=== PATIENT | female | born 1980 | race Caucasian/White ===

== ENCOUNTER 2017-07-05 23:14 | Emergency (ER) | payer MEDICARE ==
[2017-07-05] MEDS ORDERED: MORPHINE SULFATE 4 MG INJ IM ONE (23:20)
--- NOTE | 2017-07-05 23:24 | ERPHSYRPT ---
- History of Present Illness Time Seen by Provider: 07/05/17 23:21 Source: patient Exam Limitations: no limitations Physician History: 36 y/o female currently on coumadin comes to the ER after punching the top of the [place] of her car after getting into an argument with her daughter. Pt localizes the pain at the last 2 knuckles of the right hand and the wrist. Pt describes the pain as sharp, constant, worse with movement, 8/10 and not relieved by oxycodone. Occurred: just prior to arrival Method of Injury: direct blow Quality: constant Severity of Pain-Max: severe Severity of Pain-Current: severe Extremities Pain Location: wrist: right, hand: right Modifying Factors: Improves With: movement Associated Symptoms: none Allergies/Adverse Reactions: No Known Drug Allergies Allergy (Verified 07/05/17 23:49) Home Medications: PANTOPRAZOLE 40 mg Tablet [Protonix 40MG Tablet] 40 mg PO BID 05/25/13 [ History] Cetirizine HCl [Zyrtec] 10 mg PO DAILY PRN 08/15/13 [History] Linaclotide [Linzess] 145 mcg PO DAILY 11/23/13 [History] AMITRIPTYLINE HCL 50 mg Tab [AMITRIPTYLINE HCL 50 mg Tablet] 50 mg PO HS [History] Canagliflozin [Invokana] 250 mg PO DAILY 04/14/15 [History] Duloxetine HCl [Cymbalta] 60 mg PO DAILY 05/31/16 [History] Insulin Detemir [Levemir] 50 unit SQ DAILY 05/31/16 [History] Cyclobenzaprine HCl 10 mg [Flexeril 10 MG] 10 mg PO HS 08/29/16 [History] Levothyroxine Sodium 25 mcg PO DAILY 07/05/17 [History] Oxycodone HCl/Acetaminophen [Endocet 10-325 mg Tablet] 1 each PO QID 07/05/17 [ History] Warfarin Sodium 5 mg [Coumadin 5 MG] 7.5 mg PO UD 07/05/17 [History] Warfarin Sodium 5 mg [Coumadin 5 MG] 10 mg PO DAILY 07/05/17 [History] Hx Tetanus, Diphtheria Vaccination/Date Given: Yes ([place]) Hx Influenza Vaccination/Date Given: No Hx Pneumococcal Vaccination/Date Given: No - Review of Systems Constitutional: No Fever, No Chills Eyes: No Symptoms Ears, Nose, & Throat: No Symptoms Respiratory: No Cough, No Dyspnea Cardiac: No Chest Pain, No Edema, No Syncope Abdominal/Gastrointestinal: No Abdominal Pain, No Nausea, No Vomiting, No Diarrhea Genitourinary Symptoms: No Dysuria Musculoskeletal: Joint Pain, Joint Swelling, No Back Pain, No Neck Pain Skin: No Rash Neurological: No Dizziness, No Focal Weakness, No Sensory Changes Psychological: No Symptoms Endocrine: No Symptoms All Other Systems: Reviewed and Negative - Past Medical History Pertinent Past Medical History: Yes Neurological History: Peripheral Neuropathy ENT History: No Pertinent History Cardiac History: No Pertinent History Respiratory History: Bronchitis Endocrine Medical History: Diabetes Type II, Hypothyroidism Musculoskeletal History: Degenerative Disk Disease, Fibromyalgia GI Medical History: GERD History: No Pertinent History Psycho-Social History: Anxiety, Depression Female Reproductive Disorders: Abnormal Uterine Bleeding, Menstrual Problems, Other Other Medical History: Protein C-difficiency. Irritable Bowel Syndrome, ADD - Past Surgical History Past Surgical History: Yes Neuro Surgical History: No Pertinent History Cardiac: Cardiac Catheterization Respiratory: No Pertinent History Gastrointestinal: Cholecystectomy Genitourinary: No Pertinent History Musculoskeletal: Orthopedic Surgery Female Surgical History: Section, Hysterectomy, Tubal Ligation Other Surgical History: TONSILLECTOMY - LUMBAR BACK SURGERY - Social History Smoking Status: Current every day smoker How long have you smoked: 20 Exposure to second hand smoke: No Drug Use: none Patient Lives Alone: No - Female History Hx Now: No - Nursing Vital Signs Nursing Vital Signs: Initial Vital Signs Temperature 98.8 F 07/05/17 23:29 Pulse Rate 99 H 07/05/17 23:29 Respiratory Rate 18 07/05/17 23:29 Blood Pressure 160/92 07/05/17 23:29 O2 Sat by Pulse Oximetry 99 07/05/17 23:29 Pain Scale Pain Intensity 10 - Physical Exam General Appearance: alert Eyes, Ears, Nose, Throat Exam: moist mucous membranes Neck Exam: non-tender, supple Cardiovascular/Respiratory Exam: chest non-tender, normal breath sounds, regular rate/rhythm, no respiratory distress Abdominal Exam: non-tender, No guarding Back Exam: normal inspection, No vertebral tenderness Elbow/Forearm Exam: bone tenderness, limited ROM Wrist Exam: bone tenderness, limited ROM Hand Exam: bone tenderness, limited ROM Neuro/Tendon Exam: normal sensation, normal motor functions Mental Status Exam: alert, oriented x 3, cooperative Skin Exam: normal color, warm, dry SpO2 Interpretation: normal - Course Nursing assessment & vital signs reviewed: Yes Ordered Tests: Active Orders 24 hr Category Date Time Status Splint STAT Care 07/06/17 00:07 Active FOREARM Stat Exams 07/05/17 Ordered HAND (MINIMUM 3 VIEWS) Stat Exams 07/05/17 Ordered Medication Summary Discontinued Medications Generic Name Dose Route Start Last Admin Trade Name Andie PRN Reason Stop Dose Admin Morphine Sulfate 4 mg 07/05/17 23:20 07/05/17 23:35 Morphine Sulfate 4 Mg Inj IM 07/05/17 23:21 4 mg STAT ONE Administration Morphine Sulfate Confirm 07/05/17 23:30 Morphine Sulfate 4 Mg Inj Administered 07/05/17 23:31 Dose 4 mg .ROUTE .STK-MED ONE - Progress Progress: improved Progress Note: 07/06/17 00:10 The x ray of the hand shows a 5th metacarpal fracture. The forearm fracture does not show any fracture. Pt will be d/c home with F/U with Dr Lewis and will have a splint placed. - Departure Time of Disposition: 00:11 Departure Disposition: Home Clinical Impression: Metacarpal bone fracture Qualifiers: Encounter type: initial encounter Metacarpal bone: fifth Fracture type: closed Metacarpal location: base Fracture alignment: nondisplaced Laterality: right Qualified Code(s): S62.346A - Nondisplaced fracture of base of fifth metacarpal bone, right hand, initial encounter for closed fracture Condition: Stable Critical Care Time: No Referrals: JAMMIE CHRISTIAN [Primary Care Provider] - BLAS LEWIS [ACTIVE STAFF] - Instructions: Finger Fracture Additional Instructions: Follow up with Dr Lewis in the next few days. Prescriptions: Oxycodone HCl/Acetaminophen [Percocet 5-325 mg Tablet] 1 each PO QID PRN #20 tablet PRN Reason: Pain
[2017-07-05] MEDS ORDERED: MORPHINE SULFATE 4 MG INJ ONE (23:30)
[2017-07-06] MEDS ORDERED: PERCOCET TABLET 5/325MG PO STA (00:16)
[2017-07-06] MEDS ORDERED: PERCOCET TABLET 5/325MG ONE (00:27)
[2017-07-06 00:32] VITALS: BP 155/92; PULSE 93; O2SAT 96
--- NOTE | 2017-07-06 08:47 | XRAY ---
Indication: Pain following punching injury. Comparison: None 2 views of the right forearm obtained. No bony, articular, or soft tissue abnormalities.
--- NOTE | 2017-07-06 08:47 | XRAY ---
Indication: Pain following punching injury. Comparison: None 3 views of the right hand demonstrates moderately angulated fracture involving the distal shaft of the fifth metacarpal of uncertain chronicity. No other bony, articular, or soft tissue abnormalities.
== END 2017-07-06 00:32 | disposition home or self-care (01) ==
LOC: ED 23:14
PROC: 2W3EX1Z Immobilization of Right Hand using Splint (ICD-10-PCS; principal; 2017-07-06)
DX: S62.346A Nondisplaced fracture of base of fifth metacarpal bone, right hand, initial encounter for closed fracture (principal); W22.8XXA Striking against or struck by other objects, initial encounter; Z79.891 Long term (current) use of opiate analgesic; Z79.01 Long term (current) use of anticoagulants; Z79.899 Other long term (current) drug therapy; E11.9 Type 2 diabetes mellitus without complications; E03.9 Hypothyroidism, unspecified; F41.9 Anxiety disorder, unspecified
CPT/HCPCS: 29126; 73090; 73130; 96372; 99284; J2270; A9270-GY

== ENCOUNTER 2017-07-19 13:43 | Emergency (ER) | payer MEDICARE ==
[2017-07-19] MEDS ORDERED: MORPHINE SULFATE 2 MG INJ IV ONE ×2 (13:57→15:13)
[2017-07-19] MEDS ORDERED: Zofran 4 MG/2 ML VIAL IV ONE (13:57)
[2017-07-19] MEDS ORDERED: Lactated Ringers 1,000 ML IV ONE ×2 (13:59→14:16)
--- NOTE | 2017-07-19 14:05 | ERPHSYRPT ---
- History of Present Illness Time Seen by Provider: 07/19/17 13:48 Historian: patient Exam Limitations: no limitations Patient Subjective Stated Complaint: PT REPORTS DIARRHEA YESTERDAY ET VOMITING BEGINNING COLE 0900 TODAY-MULTIPLE EPISODES-REPORTS PAIN TO ABD-STATES THAT FAMILY HAS HAD ILLNESS PREVIOUS TO PT Triage Nursing Assessment: PT PALE WARM ET [id number] ALL QUESTIONS CORRECTLY-ABD TENDER TO PALP Physician History: patient with N, V &D since last pm; no travel; no bad food; no fever; exposed to family members over past week with same symptoms; city water; no prior hx; not by hx Timing/Duration: today (followed with N&V unable to keep awater down), yesterday (onset diarrhea), sudden, worse Activities at Onset: rest Quality: cramping Abdominal Pain Onset Location: generalized abdomen Pain Radiation: no radiation Severity of Pain-Max: moderate Severity of Pain-Current: mild Modifying Factors: Improves With: defecating, eating, vomiting Associated Symptoms: diarrhea, nausea, vomiting Previous symptoms: no prior history Allergies/Adverse Reactions: No Known Drug Allergies Allergy (Verified 07/19/17 13:53) Home Medications: PANTOPRAZOLE 40 mg Tablet [Protonix 40MG Tablet] 40 mg PO BID 05/25/13 [ History] Cetirizine HCl [Zyrtec] 10 mg PO DAILY PRN 08/15/13 [History] Linaclotide [Linzess] 145 mcg PO DAILY 11/23/13 [History] AMITRIPTYLINE HCL 50 mg Tab [AMITRIPTYLINE HCL 50 mg Tablet] 50 mg PO HS [History] Canagliflozin [Invokana] 250 mg PO DAILY 04/14/15 [History] Duloxetine HCl [Cymbalta] 60 mg PO DAILY 05/31/16 [History] Insulin Detemir [Levemir] 50 unit SQ DAILY 05/31/16 [History] Cyclobenzaprine HCl 10 mg [Flexeril 10 MG] 10 mg PO HS 08/29/16 [History] Levothyroxine Sodium 25 mcg PO DAILY 07/05/17 [History] Oxycodone HCl/Acetaminophen [Endocet 10-325 mg Tablet] 1 each PO QID 07/05/17 [ History] Warfarin Sodium 5 mg [Coumadin 5 MG] 7.5 mg PO UD 07/05/17 [History] Warfarin Sodium 5 mg [Coumadin 5 MG] 10 mg PO DAILY 07/05/17 [History] Hx Tetanus, Diphtheria Vaccination/Date Given: No Hx Influenza Vaccination/Date Given: No Hx Pneumococcal Vaccination/Date Given: No Immunizations Up to Date: Yes - Review of Systems Constitutional: No Symptoms Eyes: No Symptoms Ears, Nose, & Throat: No Symptoms Respiratory: No Cough, No Dyspnea, No Wheezing Cardiac: No Chest Pain, No Syncope, No Orthopnea Abdominal/Gastrointestinal: Abdominal Pain, Nausea, Vomiting, Diarrhea, No Constipation, No Hematemesis, No Hematochezia, No Melena Genitourinary Symptoms: No Symptoms Musculoskeletal: Myalgias, No Back Pain, No Fall, No Injury Skin: No Symptoms Neurological: No Symptoms Psychological: No Symptoms Endocrine: No Symptoms Hematologic/Lymphatic: No Symptoms Immunological/Allergic: No Symptoms - Past Medical History Pertinent Past Medical History: Yes Neurological History: Peripheral Neuropathy ENT History: No Pertinent History Cardiac History: No Pertinent History Respiratory History: Bronchitis Endocrine Medical History: Diabetes Type II, Hypothyroidism Musculoskeletal History: Degenerative Disk Disease, Fibromyalgia GI Medical History: GERD History: No Pertinent History Psycho-Social History: Anxiety, Depression Female Reproductive Disorders: Abnormal Uterine Bleeding, Menstrual Problems, Other Other Medical History: Protein C-difficiency. Irritable Bowel Syndrome, ADD - Past Surgical History Past Surgical History: Yes Neuro Surgical History: No Pertinent History Cardiac: Cardiac Catheterization Respiratory: No Pertinent History Gastrointestinal: Cholecystectomy Genitourinary: No Pertinent History Musculoskeletal: Orthopedic Surgery Female Surgical History: Section, Hysterectomy, Tubal Ligation Other Surgical History: TONSILLECTOMY - LUMBAR BACK SURGERY - Social History Smoking Status: Current every day smoker How long have you smoked: 20 Exposure to second hand smoke: No Alcohol Use: Socially Drug Use: none Patient Lives Alone: No Significant Family History: diabetes - Female History Hx Last Menstrual Period: HYSTERECTOMY Hx Now: No - Nursing Vital Signs Nursing Vital Signs: Initial Vital Signs Temperature 98.5 F 07/19/17 13:52 Pulse Rate 94 H 07/19/17 13:52 Respiratory Rate 20 07/19/17 13:52 Blood Pressure 128/76 07/19/17 13:52 O2 Sat by Pulse Oximetry 96 07/19/17 13:52 Pain Scale Pain Intensity 4 - Physical Exam General Appearance: moderate distress, alert, obese Eye Exam: PERRL/EOMI, eyes nml inspection, No photophobia Ears, Nose, Throat Exam: normal ENT inspection, TMs normal, pharynx normal, dry mucous membranes, other (no ketosis on breath) Neck Exam: normal inspection, non-tender, supple, full range of motion, No meningismus, No JVD Respiratory Exam: normal breath sounds, lungs clear, airway intact, No chest tenderness, No respiratory distress Cardiovascular Exam: regular rate/rhythm, normal heart sounds, normal peripheral pulses, capillary refill 2-3 sec, No murmur Gastrointestinal/Abdomen Exam: soft, tenderness (mild - non-specific; no localization), No normal bowel sounds (hypoactive), No guarding, No rebound, No organomegaly Pelvic Exam: deferred Rectal Exam: deferred Back Exam: normal inspection, normal range of motion, No CVA tenderness, No vertebral tenderness, No rash Extremity Exam: normal inspection, normal range of motion, No teresa's sign, No pedal edema Neurologic Exam: alert, oriented x 3, cooperative, assistant real estate manager II-XII nml as tested, normal mood/affect, nml cerebellar function, nml station & gait, sensation nml Skin Exam: normal color, warm, dry, No rash SpO2 Interpretation: normal SpO2: 96 Oxygen Delivery: Room Air - Course Nursing assessment & vital signs reviewed: Yes Ordered Tests: Active Orders 24 hr Category Date Time Status Accucheck STAT Care 07/19/17 14:05 Active IV Insertion STAT Care 07/19/17 13:57 Active NPO (ED) STAT Care 07/19/17 13:57 Active Re-Check Vital Signs STAT Care 07/19/17 13:57 Active AMYLASE Stat Lab 07/19/17 14:10 Completed CBC W DIFF Stat Lab 07/19/17 14:10 Completed CMP Stat Lab 07/19/17 14:10 Completed HCG QUALITATIVE,SERUM Stat Lab 07/19/17 14:10 Completed LIPASE Stat Lab 07/19/17 14:10 Completed Medication Summary Discontinued Medications Generic Name Dose Route Start Last Admin Trade Name Freq PRN Reason Stop Dose Admin Lactated Ringer's 1,000 mls @ 999 mls/hr 07/19/17 13:59 07/19/17 14:20 Lactated Ringers IV 07/19/17 14:59 999 mls/hr .Q1H1M ONE Administration Lactated Ringer's Confirm 07/19/17 14:16 Lactated Ringers Administered 07/19/17 14:17 Dose 1,000 mls @ ud IV .STK-MED ONE Sodium Chloride 1,000 mls @ 999 mls/hr 07/19/17 15:13 07/19/17 15:23 Sodium Chloride 0.9% 1000 Ml IV 07/19/17 16:13 999 mls/hr .Q1H1M STA Administration Sodium Chloride Confirm 07/19/17 15:20 Sodium Chloride 0.9% 1000 Ml Administered 07/19/17 15:21 Dose 1,000 mls @ ud .ROUTE .STK-MED ONE Morphine Sulfate 1 mg 07/19/17 13:57 07/19/17 14:20 Morphine Sulfate 2 Mg Inj IV 07/19/17 13:58 1 mg STAT ONE Administration Morphine Sulfate Confirm 07/19/17 14:15 Morphine Sulfate 2 Mg Inj Administered 07/19/17 14:16 Dose 2 mg .ROUTE .STK-MED ONE Morphine Sulfate 1 mg 07/19/17 15:13 07/19/17 15:22 Morphine Sulfate 2 Mg Inj IV 07/19/17 15:14 1 mg STAT ONE Administration Morphine Sulfate Confirm 07/19/17 15:20 Morphine Sulfate 2 Mg Inj Administered 07/19/17 15:21 Dose 2 mg .ROUTE .STK-MED ONE Ondansetron HCl 4 mg 07/19/17 13:57 07/19/17 14:21 Zofran 4 Mg/2 Ml Vial IV 07/19/17 13:58 4 mg STAT ONE Administration Ondansetron HCl Confirm 07/19/17 14:15 Zofran 4 Mg/2 Ml Vial Administered 07/19/17 14:16 Dose 4 mg .ROUTE .STK-MED ONE Promethazine HCl 12.5 mg 07/19/17 15:13 07/19/17 15:22 Phenergan 25 Mg Inj IV 07/19/17 15:14 12.5 mg STAT ONE Administration Promethazine HCl Confirm 07/19/17 15:19 Phenergan 25 Mg Inj Administered 07/19/17 15:20 Dose 25 mg .ROUTE .STK-MED ONE Lab/Rad Data: Laboratory Result Diagrams 07/19/17 14:10 07/19/17 14:10 Laboratory Results 07/19/17 07/19/17 07/19/17 Range/Units 14:10 14:10 14:10 WBC 10.3 (4.0-10.5) K/mm3 RBC 4.69 (4.1-5.4) M/mm3 Hgb 13.7 (12.0-16.0) gm/dl Hct 41.3 (35-47) % MCV 88.1 (78-100) fl MCH 29.2 (26-32) pg MCHC 33.2 (32-36) g/dl RDW 13.8 (11.5-14.0) % Plt Count 255 (150-450) K/mm3 MPV 10.1 H (6-9.5) fl Gran % 67.7 H (36.0-66.0) % Lymphocytes % 23.7 L (24.0-44.0) % Monocytes % 6.8 (0.0-12.0) % Eosinophils % 1.7 (0.00-5.0) % Basophils % 0.1 (0.0-0.4) % Basophils # 0.01 (0-0.4) Sodium 144 (136-145) mEq/L Potassium 4.0 (3.5-5.1) mEq/L Chloride 107 (98-107) mEq/L Carbon Dioxide 27.9 (21-32) mEq/L Anion Gap 12.9 (5-15) MEQ/L BUN 15 (9-20) mg/dL Creatinine 0.65 (0.55-1.30) mg/dl Estimated GFR > 60 ML/MIN Glucose 139 H (70-110) MG/DL Calcium 8.8 (8.5-10.1) mg/dL Total Bilirubin 0.60 (0.2-1.0) mg/dL AST 448 H (15-37) U/L ALT 144 H (12-78) U/L Alkaline Phosphatase 305 H (46-116) U/L Serum Total Protein 6.5 (6.4-8.2) gm/dL Albumin 3.1 L (3.4-5.0) g/dL Amylase 11 L (25-115) U/L Lipase 98 (73-393) U/L Serum , Qual NEGATIVE (Negative) reviewed - Progress Progress: improved (after meds), re-examined (after iv fluids and meds) Progress Note: 07/19/17 14:05 will hydrate with IV fluids and recheck; labs pending, meds will be given 07/19/17 15:08 Accucheck 147; hcg neg; still some nausea and cramps but no emesis or diarrhea; cbc ok; will continue IV hydration and recheck 07/19/17 15:44 recheck and improved after more meds and IV fluids; BS 138; renal fx ok; lytes ok; liver enz up ; lip and trell ok; at bedside; will continue IV hydration and recheck; treatment plan discussed 07/19/17 16:41 recheck and much improved; feels good; wants to go home; treatment plan and instructions given; Counseled pt/family regarding: lab results, diagnosis, need for follow-up, smoking cessation - Departure Time of Disposition: 16:42 Departure Disposition: Home Clinical Impression: Abdominal pain, Acute gastroenteritis, Elevated liver enzymes Condition: Stable Critical Care Time: No Referrals: JAMMIE CHRISTIAN [Primary Care Provider] - Instructions: Diarrhea and Traveler's Diarrhea -- Adult, Nausea -- Adult, Vomiting -- Adult Additional Instructions: BRAT diet; yogurt; gatorade Follow-up with family doctor as directed. Call for appointment. Return if any problems. If you smoke please stop. Call or follow up with your family doctor for assistance if you need it to stop. Please wear your seatbelt when driving. Have a nice day. Thank you for allowing us to participate in your care today. :o) Dr Kirill Gonzalez Prescriptions: Loperamide HCl [Imodium A-D] 2 mg PO Q8H PRN PRN #10 tablet PRN Reason: Diarrhea Ondansetron [Zofran Odt] 4 mg PO Q6-8HPRN PRN #10 tab.rapdis PRN Reason: Vomiting
[2017-07-19] MEDS ORDERED: MORPHINE SULFATE 2 MG INJ ONE ×2 (14:15→15:20)
[2017-07-19] MEDS ORDERED: Zofran 4 MG/2 ML VIAL ONE (14:15)
[2017-07-19 14:19] LABS: BASOPHIL % 0.1 % (0.0-0.4); Eosinophil % 1.7 % (0.00-5.0); Granulocytes % 67.7 % (36.0-66.0); Lymphocytes % 23.7 % (24.0-44.0); Mean Cell Volume 88.1 fl (78-100); Mean Corpuscular Hemoglobin 29.2 pg (26-32); Mean Platelet Volume 10.1 fl (6-9.5); Monocytes % 6.8 % (0.0-12.0); Platelet Count 255 K/mm3 (150-450); Red Blood Count 4.69 M/mm3 (4.1-5.4); Red Cell Distribution Width 13.8 % (11.5-14.0); White Blood Count 10.3 K/mm3 (4.0-10.5)
[2017-07-19 15:01] LABS: ALBUMIN 3.1 g/dL (3.4-5.0); ALKALINE PHOSPHATASE 305 U/L (46-116); ANION GAP 12.9 MEQ/L (5-15); BLOOD UREA NITROGEN 15 mg/dL (9-20); CHLORIDE 107 mEq/L (98-107); Carbon Dioxide 27.9 mEq/L (21-32); Glucose 139 MG/DL (70-110); LIPASE 98 U/L (73-393); SGOT/AST 448 U/L (15-37); SGPT/ALT 144 U/L (12-78); SODIUM 144 mEq/L (136-145); Total Protein 6.5 gm/dL (6.4-8.2)
[2017-07-19] MEDS ORDERED: Sodium Chloride 0.9% 1000 ML 1,000 ML IV STA (15:13)
[2017-07-19] MEDS ORDERED: Phenergan 25 MG INJ IV ONE (15:13)
[2017-07-19] MEDS ORDERED: Phenergan 25 MG INJ ONE (15:19)
[2017-07-19] MEDS ORDERED: Sodium Chloride 0.9% 1000 ML 1,000 ML ONE (15:20)
[2017-07-19 16:54] VITALS: BP 118/56; PULSE 92; O2SAT 95
== END 2017-07-19 16:54 | disposition home or self-care (01) ==
LOC: ED 13:43
DX: R10.9 Unspecified abdominal pain (principal); K52.9 Noninfective gastroenteritis and colitis, unspecified; R74.8 Abnormal levels of other serum enzymes; R11.2 Nausea with vomiting, unspecified; R19.7 Diarrhea, unspecified; Z79.899 Other long term (current) drug therapy; Z79.01 Long term (current) use of anticoagulants
CPT/HCPCS: 36000; 36415; 80053; 82150; 82962; 83690; 84703; 85025; 96360; 96361; 96374; 96376; 99284; J2270; J2405; J2550

== ENCOUNTER 2018-09-04 03:09 | Emergency (ER) | payer MEDICARE ==
[2018-09-04 03:27] VITALS: BP 151/72; O2SAT 97
[2018-09-04] MEDS ORDERED: MORPHINE SULFATE 4 MG INJ IM ONE (03:29)
[2018-09-04] MEDS ORDERED: MORPHINE SULFATE 4 MG INJ ONE (03:34)
--- NOTE | 2018-09-04 03:36 | ERPHSYRPT ---
- History of Present Illness Time Seen by Provider: 09/04/18 03:31 Source: patient Exam Limitations: no limitations Patient Subjective Stated Complaint: TWISTED LEFT ANKLE IN A HOLE TODAY AT 1800. PAIN IN LATERAL ASPECT OF THE FOOT /ANKLE AND INTO THE ACHILLES. WAS ABLE TO WALK AFTER INJURY BUT INCREASING PAIN THE NIGHT HAS GONE ON Triage Nursing Assessment: FELL AND TWISTED LEFT ANKLE WITH PAIN TO LATERAL ASPECT OF LEFT FOOT. PAIN INTO LEFT ACHILLES.. + PEDAL PULSE PALPABLE + SWELLING.. PAIN ON PALPATION. WAS ABLE TO WALK AT TIME OF INJURY BUT STATES UNABLE TO WALK AT THIS TIME Physician History: 37-year-old white female arrives with complaint of pain in left ankle symptoms since 1800 last night. According to patient she stepped in a hole and twisted her ankle she states she has severe pain in her left ankle laterally medially and posteriorly. She has pain with any movement of the left ankle and states she has pain with walking. Patient does have a history of chronic pain she is on oxycodone she states this is not relieved her pain Past medical history includes peripheral neuropathy, bronchitis, diabetes type 2 , hypothyroidism, degenerative disc disease, fibromyalgia, anxiety, depression, abnormal uterine bleeding, menstrual problems, protein C deficiency, irritable bowel, ADD, Past surgical history includes cholecystectomy, cardiac catheterization, orthopedic surgery, , hysterectomy, tubal ligation, tonsillectomy, back surgery (lumbar) Social history includes tobacco use. Patient denies illicit drug or alcohol use. Method of Injury: twisted Occurred: hours ago (9 hours ago) Quality: constant Severity of Pain-Max: moderate Severity of Pain-Current: moderate Lower Extremities Pain: ankle: left Modifying Factors: Improves With: movement, other (walking) Associated Symptoms: unable to bear weight Allergies/Adverse Reactions: No Known Drug Allergies Allergy (Verified 09/04/18 03:29) Home Medications: PANTOPRAZOLE 40 mg Tablet [Protonix 40MG Tablet] 40 mg PO BID 05/25/13 [ History] Cetirizine HCl [Zyrtec] 10 mg PO DAILY PRN 08/15/13 [History] Linaclotide [Linzess] 145 mcg PO DAILY 11/23/13 [History] AMITRIPTYLINE HCL 50 mg Tab [AMITRIPTYLINE HCL 50 mg Tablet] 50 mg PO HS [History] Canagliflozin [Invokana] 250 mg PO DAILY 04/14/15 [History] Duloxetine HCl [Cymbalta] 60 mg PO DAILY 05/31/16 [History] Insulin Detemir [Levemir] 50 unit SQ DAILY 05/31/16 [History] Cyclobenzaprine HCl 10 mg [Flexeril 10 MG] 10 mg PO HS 08/29/16 [History] Levothyroxine Sodium 25 mcg PO DAILY 07/05/17 [History] Warfarin Sodium 5 mg [Coumadin 5 MG] 7.5 mg PO DAILY 07/05/17 [History] Warfarin Sodium 5 mg [Coumadin 5 MG] 10 mg PO UD 07/05/17 [History] Dextroamphetamine/Amphetamine [Adderall 20 mg Tablet] 20 mg PO DAILY 11/23/17 [ History] Gabapentin 600 mg PO HS 01/30/18 [History] Oxycodone HCl [Oxaydo] 7.5 mg PO Q6H PRN PRN 01/30/18 [History] Varenicline Tartrate [Chantix] 1 each PO BID 01/30/18 [History] Hx Tetanus, Diphtheria Vaccination/Date Given: No Hx Influenza Vaccination/Date Given: No Hx Pneumococcal Vaccination/Date Given: No Immunizations Up to Date: (UNKNOWN) - Review of Systems Constitutional: No Fever, No Chills Eyes: No Symptoms Ears, Nose, & Throat: No Symptoms Respiratory: No Cough, No Dyspnea Cardiac: No Chest Pain, No Edema, No Syncope Abdominal/Gastrointestinal: No Abdominal Pain, No Nausea, No Vomiting, No Diarrhea Genitourinary Symptoms: No Dysuria Musculoskeletal: Injury, Joint Pain (left ankle pain), Joint Swelling (left ankle swelling), No Arthralgias, No Back Pain, No Neck Pain, No Deformity, No Fall, No Joint Redness Skin: No Rash Neurological: No Dizziness, No Focal Weakness, No Sensory Changes Psychological: No Symptoms Endocrine: No Symptoms All Other Systems: Reviewed and Negative - Past Medical History Pertinent Past Medical History: Yes Neurological History: Peripheral Neuropathy ENT History: No Pertinent History Cardiac History: No Pertinent History Respiratory History: Bronchitis Endocrine Medical History: Diabetes Type II, Hypothyroidism Musculoskeletal History: Degenerative Disk Disease, Fibromyalgia GI Medical History: GERD History: No Pertinent History Psycho-Social History: Anxiety, Depression Female Reproductive Disorders: Abnormal Uterine Bleeding, Menstrual Problems, Other Other Medical History: Protein C-difficiency. Irritable Bowel Syndrome, ADD - Past Surgical History Past Surgical History: Yes Neuro Surgical History: No Pertinent History Cardiac: Cardiac Catheterization Respiratory: No Pertinent History Gastrointestinal: Cholecystectomy Genitourinary: No Pertinent History Musculoskeletal: Orthopedic Surgery Female Surgical History: Section, Hysterectomy, Tubal Ligation Other Surgical History: TONSILLECTOMY - LUMBAR BACK SURGERY - Social History Smoking Status: Current every day smoker How long have you smoked: 20 Exposure to second hand smoke: No Alcohol Use: Socially Drug Use: none Patient Lives Alone: No Significant Family History: diabetes - Female History Hx Now: No - Nursing Vital Signs Nursing Vital Signs: Initial Vital Signs Temperature 98.4 F 09/04/18 03:15 Respiratory Rate 18 09/04/18 03:15 Blood Pressure 151/72 09/04/18 03:15 O2 Sat by Pulse Oximetry 97 09/04/18 03:15 Pain Scale Pain Intensity 7 - Physical Exam General Appearance: mild distress Eyes, Ears, Nose, Throat Exam: moist mucous membranes Neck Exam: non-tender, supple Cardiovascular/Respiratory Exam: chest non-tender, normal breath sounds, regular rate/rhythm, no respiratory distress Gastrointestinal/Abdominal Exam: non-tender, guarding Back Exam: normal inspection, No vertebral tenderness Hips Exam: bilateral: non-tender, normal inspection, normal range of motion, no evidence of injury Legs Exam: bilateral leg: non-tender, normal inspection, normal range of motion , no evidence of injury Knees Exam: bilateral knee: non-tender, normal inspection, normal range of motion, no evidence of injury Ankle Exam: right ankle: non-tender, normal inspection, normal range of motion, no evidence of injury, left ankle: other (patient's left ankle tender with palpation, medially, laterally, posteriorly, left dorsal pedal, posterior tibial pulses intact 2 over 4, good capillary refill all toes patient with plantar flexion with squeezing left calf.) Foot Exam: bilateral foot: non-tender, normal inspection, normal range of motion , no evidence of injury Neuro/Tendon Exam: normal sensation, normal motor functions, normal tendon functions, responds to pain, no evidence tendon injury, No motor deficit, No sensory deficit Mental Status Exam: alert, oriented x 3, cooperative Skin Exam: normal color, warm, dry SpO2 Interpretation: normal (97%) SpO2: 97 Oxygen Delivery: Room Air - Course Nursing assessment & vital signs reviewed: Yes - Radiology Exams Left Ankle X-ray Interpretation: Interpreted by me, Negative, No Fracture, No Subluxation Ordered Tests: Active Orders 24 hr Category Date Time Status Sly Bandage Application -[facility] STAT Care 09/04/18 03:52 Active Crutches STAT Care 09/04/18 03:52 Active ANKLE (3 VIEWS) Stat Exams 09/04/18 03:29 Taken Medication Summary Discontinued Medications Generic Name Dose Route Start Last Admin Trade Name Andie PRN Reason Stop Dose Admin Morphine Sulfate 4 mg 09/04/18 03:29 09/04/18 03:35 Morphine Sulfate 4 Mg Inj IM 09/04/18 03:30 4 mg STAT ONE Administration Morphine Sulfate Confirm 09/04/18 03:34 Morphine Sulfate 4 Mg Inj Administered 09/04/18 03:35 Dose 4 mg .ROUTE .STK-MED ONE - Progress Progress: improved Progress Note: 09/04/18 03:37 37-year-old white female with history of chronic pain syndrome arrives with complaint of pain in her left ankle after twisting it approximately 9 hours ago. She has pain with palpation of medial lateral posterior left ankle decreased range of motion left ankle left toe secondary to pain good capillary refill to all toes sensation intact to all toes left dorsal pedal posterior tibial pulses are intact. Patient does state that she took an oxycodone which is not relieving her pain she does have chronic pain syndrome. inspect is reviewed and the patient is on Oxycodone HCL 10 mg she recieved 120 of these on 08/09/2018. Will go ahead and give patient morphine 4 mg IM go ahead and x-ray the patient' s left ankle. 09/04/18 03:44 09/04/18 03:52 X-ray left ankle my read: No fracture no subluxation. We'll go ahead and have the nurses apply Sly wrap to the patient's left ankle place patient on crutches weightbearing as tolerated. Patient has been given morphine 4 mg IM. Patient to continue her oxycodone as prescribed by her pain project control manager. Patient has been advised to follow-up with her family doctor or pain project control manager if symptoms are worse no better in 24-48 hours or persist longer than one week. She is return for acute distress or for severe symptoms. - Departure Time of Disposition: 03:54 Departure Disposition: Home Clinical Impression: History of chronic pain Left ankle pain Qualifiers: Chronicity: acute Qualified Code(s): M25.572 - Pain in left ankle and joints of left foot Left ankle sprain Qualifiers: Encounter type: initial encounter Involved ligament of ankle: unspecified ligament Qualified Code(s): S93.402A - Sprain of unspecified ligament of left ankle, initial encounter Condition: Fair Critical Care Time: No Referrals: JAMMIE CHRISTIAN [Primary Care Provider] - Instructions: Ankle Sprain (DC) Additional Instructions: Return home. Ice and elevate your left ankle 24-48 hours. Crutches weightbearing as tolerated. Follow-up with your family doctor if symptoms are worse, no better in 48 hours, or persist longer than one week. Follow-up with your family doctor or pain project control manager if your current narcotics are not controlling your pain. Return for acute distress or for severe symptoms. Your x-rays have been preliminarily read, they will be reread tomorrow, contacted if any discrepancies are noted.
--- NOTE | 2018-09-04 09:11 | XRAY ---
Indication: Pain following twisting injury. Comparison: None 3 views of the left ankle obtained. No bony, articular, or soft tissue abnormalities.
== END 2018-09-04 04:00 | disposition home or self-care (01) ==
LOC: ED 03:09
DX: G89.4 Chronic pain syndrome (principal); S93.402A Sprain of unspecified ligament of left ankle, initial encounter; M25.572 Pain in left ankle and joints of left foot; M25.472 Effusion, left ankle; G62.9 Polyneuropathy, unspecified; E11.9 Type 2 diabetes mellitus without complications; E03.9 Hypothyroidism, unspecified; M79.7 Fibromyalgia; K21.9 Gastro-esophageal reflux disease without esophagitis; F41.9 Anxiety disorder, unspecified; F32.9 Major depressive disorder, single episode, unspecified; K58.9 Irritable bowel syndrome, unspecified; Z72.0 Tobacco use; Z79.01 Long term (current) use of anticoagulants; Z79.899 Other long term (current) drug therapy
CPT/HCPCS: 73610; 96372; 99284; J2270

== ENCOUNTER 2018-12-17 20:46 | Emergency (ER) | payer MEDICARE ==
[2018-12-17] MEDS ORDERED: Sodium Chloride 0.9% 1000 ML 1,000 ML IV STA (21:37)
[2018-12-17] MEDS ORDERED: MORPHINE SULFATE 4 MG INJ IV ONE ×2 (21:40→22:41)
--- NOTE | 2018-12-17 21:45 | ERPHSYRPT ---
- History of Present Illness Time Seen by Provider: 12/17/18 21:33 Source: patient Exam Limitations: no limitations Patient Subjective Stated Complaint: pt states she woke up yesterday with a headache, body acehes and congestion. states she has had a fever up to 100 at home Triage Nursing Assessment: pt alert and oriented, answers questions approp. respirations nonlabored with lungs cta. pt ambulatory with steady gait noted. pupils equal and reactive. bilat upper and lower ext strength wnl. abd soft and nontender to light palpation. bowel sounds present Physician History: 38-year-old white female with history of peripheral neuropathy, diabetes, hypothyroidism, degenerative disc disease, fibromyalgia, anxiety, depression, abnormal uterine bleeding, menstrual periods, chronic pain Patient arrives with complaint of nasal congestion generalized aches temperature to 100 symptoms since yesterday also headache. Past medical history includes peripheral neuropathy, bronchitis, diabetes type 2 , hypothyroidism, degenerative disc disease, fibromyalgia, anxiety, depression, abnormal uterine bleeding, menstrual periods, protein C deficiency, irritable bowel, attention deficit disorder, patient on chronic pain medications Past surgical history includes cholecystectomy, cardiac catheterization, orthopedic surgery, , hysterectomy, tubal ligation, tonsillectomy, lumbar back surgery Timing/Duration: yesterday Severity: moderate Modifying Factors: Improves With: nothing Associated Symptoms: headaches, malaise, other (generalized aching), No nausea, No vomiting, No shortness of breath, No heartburn, No diaphoresis, No cough, No chills, No chest pain, No fever, No loss of appetite, No rash, No syncope, No seizure, No weakness Allergies/Adverse Reactions: No Known Drug Allergies Allergy (Verified 12/17/18 21:07) Home Medications: PANTOPRAZOLE 40 mg Tablet [Protonix 40MG Tablet] 40 mg PO BID 05/25/13 [ History] Cetirizine HCl [Zyrtec] 10 mg PO DAILY PRN 08/15/13 [History] Linaclotide [Linzess] 145 mcg PO DAILY 11/23/13 [History] AMITRIPTYLINE HCL 50 mg Tab [AMITRIPTYLINE HCL 50 mg Tablet] 50 mg PO HS [History] Canagliflozin [Invokana] 250 mg PO DAILY 04/14/15 [History] Duloxetine HCl [Cymbalta] 60 mg PO DAILY 05/31/16 [History] Insulin Detemir [Levemir] 50 unit SQ DAILY 05/31/16 [History] Cyclobenzaprine HCl 10 mg [Flexeril 10 MG] 10 mg PO HS 08/29/16 [History] Levothyroxine Sodium 25 mcg PO DAILY 07/05/17 [History] Warfarin Sodium 5 mg [Coumadin 5 MG] 7.5 mg PO DAILY 07/05/17 [History] Warfarin Sodium 5 mg [Coumadin 5 MG] 10 mg PO UD 07/05/17 [History] Dextroamphetamine/Amphetamine [Adderall 20 mg Tablet] 20 mg PO DAILY 11/23/17 [ History] Gabapentin 600 mg PO HS 01/30/18 [History] Oxycodone HCl [Oxaydo] 7.5 mg PO Q6H PRN PRN 01/30/18 [History] Varenicline Tartrate [Chantix] 1 each PO BID 01/30/18 [History] Hx Tetanus, Diphtheria Vaccination/Date Given: Yes Hx Influenza Vaccination/Date Given: No Hx Pneumococcal Vaccination/Date Given: No Immunizations Up to Date: Yes - Review of Systems Constitutional: Fever (temp to 100 Fahrenheit), Malaise, No Chills, No Fatigue, No Lethargy, No Night Sweats, No Weakness, No Weight Loss Eyes: No Symptoms Ears, Nose, & Throat: Nose Congestion, Nose Discharge, No Ear Pain, No Ear Discharge, No Hearing Changes, No Nose Pain, No Sinus Drainage, No Epistaxis, No Mouth Pain, No Mouth Swelling, No Loose Teeth, No Throat Pain, No Throat Swelling, No Hoarse, No Painful Swallowing, No Snoring, No Stridor Respiratory: No Cough, No Dyspnea Cardiac: No Chest Pain, No Edema, No Syncope Abdominal/Gastrointestinal: Nausea, No Abdominal Pain, No Vomiting, No Diarrhea Genitourinary Symptoms: No Dysuria Musculoskeletal: Myalgias, No Arthralgias, No Back Pain, No Neck Pain, No Deformity, No Fall, No Injury, No Joint Redness, No Joint Pain, No Joint Swelling Skin: No Rash Neurological: No Dizziness, No Focal Weakness, No Sensory Changes Psychological: No Symptoms Endocrine: No Symptoms All Other Systems: Reviewed and Negative - Past Medical History Pertinent Past Medical History: Yes Neurological History: Peripheral Neuropathy ENT History: No Pertinent History Cardiac History: No Pertinent History Respiratory History: Bronchitis Endocrine Medical History: Diabetes Type I, Hypothyroidism Musculoskeletal History: Degenerative Disk Disease, Fibromyalgia GI Medical History: GERD History: No Pertinent History Psycho-Social History: Anxiety, Depression Female Reproductive Disorders: Abnormal Uterine Bleeding, Menstrual Problems, Other Other Medical History: Protein C-difficiency. Irritable Bowel Syndrome, ADD - Past Surgical History Past Surgical History: Yes Neuro Surgical History: No Pertinent History Cardiac: Cardiac Catheterization Respiratory: No Pertinent History Gastrointestinal: Cholecystectomy Genitourinary: No Pertinent History Musculoskeletal: Orthopedic Surgery Female Surgical History: Section, Hysterectomy, Tubal Ligation Other Surgical History: TONSILLECTOMY - LUMBAR BACK SURGERY - Social History Smoking Status: Current every day smoker How long have you smoked: 20 Exposure to second hand smoke: No Alcohol Use: Socially Drug Use: none Patient Lives Alone: No Significant Family History: diabetes - Female History Hx Last Menstrual Period: hyster Hx Now: No - Nursing Vital Signs Nursing Vital Signs: Initial Vital Signs Temperature 98.3 F 12/17/18 20:56 Pulse Rate 104 H 12/17/18 20:56 Respiratory Rate 18 12/17/18 20:56 Blood Pressure 165/61 12/17/18 20:56 O2 Sat by Pulse Oximetry 100 12/17/18 20:56 Pain Scale Pain Intensity 8 - Physical Exam General Appearance: mild distress Eye Exam: PERRL/EOMI, eyes nml inspection, other (fundi are unremarkable) Ears, Nose, Throat Exam: normal ENT inspection, TMs normal, pharynx normal, moist mucous membranes Neck Exam: normal inspection, non-tender, supple, full range of motion Respiratory Exam: normal breath sounds, lungs clear, No respiratory distress Cardiovascular Exam: regular rate/rhythm, normal heart sounds, normal peripheral pulses Gastrointestinal/Abdomen Exam: soft, normal bowel sounds, No tenderness, No mass Back Exam: normal inspection, normal range of motion, No CVA tenderness, No vertebral tenderness Extremity Exam: normal inspection, normal range of motion, pelvis stable Neurologic Exam: alert, oriented x 3, cooperative, business services administrator II-XII nml as tested, normal mood/affect, nml cerebellar function, nml station & gait, sensation nml, No motor deficits Skin Exam: normal color, warm, dry, No rash SpO2 Interpretation: normal (100%) SpO2: 100 - Course Nursing assessment & vital signs reviewed: Yes Ordered Tests: Active Orders 24 hr Category Date Time Status IV Insertion STAT Care 12/17/18 21:37 Active Glucose,Critical Care Urgent Lab 12/17/18 21:47 Completed Medication Summary Discontinued Medications Generic Name Dose Route Start Last Admin Trade Name Andie PRN Reason Stop Dose Admin Sodium Chloride 1,000 mls @ 999 mls/hr 12/17/18 21:37 12/17/18 22:05 Sodium Chloride 0.9% 1000 Ml IV 12/17/18 22:37 999 mls/hr .Q1H1M STA Administration Sodium Chloride Confirm 12/17/18 22:01 Sodium Chloride 0.9% 1000 Ml Administered 12/17/18 22:02 Dose 1,000 mls @ ud .ROUTE .STK-MED ONE Morphine Sulfate 4 mg 12/17/18 21:40 12/17/18 22:05 Morphine Sulfate 4 Mg Inj IV 12/17/18 21:41 4 mg STAT ONE Administration Morphine Sulfate Confirm 12/17/18 22:01 Morphine Sulfate 4 Mg Inj Administered 12/17/18 22:02 Dose 4 mg .ROUTE .STK-MED ONE Morphine Sulfate 4 mg 12/17/18 22:41 12/17/18 22:47 Morphine Sulfate 4 Mg Inj IV 12/17/18 22:42 4 mg STAT ONE Administration Morphine Sulfate Confirm 12/17/18 22:44 Morphine Sulfate 4 Mg Inj Administered 12/17/18 22:45 Dose 4 mg .ROUTE .STK-MED ONE Ondansetron HCl 4 mg 12/17/18 22:00 12/17/18 22:04 Zofran 4 Mg/2 Ml Vial IV 12/17/18 22:01 4 mg STAT ONE Administration Ondansetron HCl Confirm 12/17/18 22:01 Zofran 4 Mg/2 Ml Vial Administered 12/17/18 22:02 Dose 4 mg .ROUTE .STK-MED ONE Lab/Rad Data: Laboratory Results 12/17/18 12/17/18 Range/Units 21:48 21:47 Glucose 123 H (70-110) Influenza Type A Ag NEGATIVE (NEGATIVE) Influenza Type B Ag NEGATIVE (NEGATIVE) RSV (PCR) NEGATIVE (Negative) - Progress Progress: improved Progress Note: 12/17/18 22:42 38-year-old white female arrives with complaint of headache since yesterday in the front of her head sinus area in the back of her head. Patient states she's had a temperature up to 100 and home temp she patient is afebrile here. Patient with normal neurologic exam. Patient is on Coumadin her last INR was 2.41 proximally 2 days ago. Patient with nasal congestion since yesterday. Physical examination essentially normal. Patient is improved after receiving morphine 4 mg IV is noted that patient is on oxycodone 10/325 3 times a day at home. Patient's improvement states she still has some pain in the back of her head. I've offered a head CT she does not want this. Will go ahead and give patient morphine 4 mg IV. Patient is to return home, rest, dark quiet room. She is to hold her oxycodone tonight. Will give her a work slip tomorrow. She is to follow-up with her family if symptoms persist tomorrow. She is return for acute distress or for severe symptoms. - Departure Time of Disposition: 22:59 Departure Disposition: Home Clinical Impression: Headache Qualifiers: Headache type: unspecified Headache chronicity pattern: acute headache Intractability: not intractable Qualified Code(s): R51 - Headache URI (upper respiratory infection) Qualifiers: URI type: unspecified URI Qualified Code(s): J06.9 - Acute upper respiratory infection, unspecified Condition: Fair Critical Care Time: No Referrals: JAMMIE CHRISTIAN [Primary Care Provider] - Instructions: Headache, Adult (DC) Additional Instructions: Return home, rest, dark quiet room. Plenty of fluids. Hold your oxycodone tonight (you have received morphine in the emergency room) Follow-up with your family doctor tomorrow if symptoms persist. Return for acute distress or for severe symptoms.
[2018-12-17] MEDS ORDERED: Zofran 4 MG/2 ML VIAL IV ONE (22:00)
[2018-12-17] MEDS ORDERED: Zofran 4 MG/2 ML VIAL ONE (22:01)
[2018-12-17] MEDS ORDERED: MORPHINE SULFATE 4 MG INJ ONE ×2 (22:01→22:44)
[2018-12-17] MEDS ORDERED: Sodium Chloride 0.9% 1000 ML 1,000 ML ONE (22:01)
[2018-12-17 22:25] LABS: INFLUENZA A NEGATIVE (NEGATIVE); INFLUENZA B NEGATIVE (NEGATIVE); RESPIRATORY SYNCTIAL VIRUS NEGATIVE (Negative)
[2018-12-17 23:10] VITALS: BP 129/65; PULSE 79; O2SAT 96
== END 2018-12-17 23:14 | disposition home or self-care (01) ==
LOC: ED 20:46
DX: R51 Headache (principal); J06.9 Acute upper respiratory infection, unspecified; G62.9 Polyneuropathy, unspecified; E03.9 Hypothyroidism, unspecified; M79.7 Fibromyalgia; F41.8 Other specified anxiety disorders; E11.9 Type 2 diabetes mellitus without complications; Z79.01 Long term (current) use of anticoagulants
CPT/HCPCS: 36000; 82947; 87631; 96360; 96374; 96375; 96376; 99284; J2270; J2405

== ENCOUNTER 2019-12-21 22:47 | Emergency (ER) | payer MEDICARE ==
--- NOTE | 2019-12-21 23:45 | ERPHSYRPT ---
- History of Present Illness Time Seen by Provider: 12/21/19 23:40 Source: patient, family Exam Limitations: no limitations Physician History: pt is 39 yr old female with onset of flu like symptoms with aching and ST and exposure to both strep and flu; no vomiting not short of breath has cough Timing/Duration: day(s) Cough Quality/Degree: productive cough Possible Cause: no prior episodes Modifying Factors: Improves With: nothing Associated Symptoms: fever, cough, sore throat International travel in last 2 weeks: No Allergies/Adverse Reactions: No Known Drug Allergies Allergy (Verified 12/22/19 00:01) Home Medications: PANTOPRAZOLE 40 mg Tablet [Protonix 40MG Tablet] 40 mg PO BID 05/25/13 [ History] Cetirizine HCl [Zyrtec] 10 mg PO DAILY PRN 08/15/13 [History] Linaclotide [Linzess] 145 mcg PO DAILY 11/23/13 [History] AMITRIPTYLINE HCL 50 mg Tab [AMITRIPTYLINE HCL 50 mg Tablet] 50 mg PO HS [History] Canagliflozin [Invokana] 250 mg PO DAILY 04/14/15 [History] Duloxetine HCl [Cymbalta] 60 mg PO DAILY 05/31/16 [History] Insulin Detemir [Levemir] 50 unit SQ DAILY 05/31/16 [History] Cyclobenzaprine HCl 10 mg [Flexeril 10 MG] 10 mg PO HS 08/29/16 [History] Levothyroxine Sodium 25 mcg PO DAILY 07/05/17 [History] Warfarin Sodium 5 mg [Coumadin 5 MG] 7.5 mg PO DAILY 07/05/17 [History] Warfarin Sodium 5 mg [Coumadin 5 MG] 10 mg PO UD 07/05/17 [History] Dextroamphetamine/Amphetamine [Adderall 20 mg Tablet] 20 mg PO DAILY 11/23/17 [ History] Gabapentin 600 mg PO HS 01/30/18 [History] Oxycodone HCl [Oxaydo] 7.5 mg PO Q6H PRN PRN 01/30/18 [History] Varenicline Tartrate [Chantix] 1 each PO BID 01/30/18 [History] Hx Tetanus, Diphtheria Vaccination/Date Given: Yes Hx Influenza Vaccination/Date Given: No Hx Pneumococcal Vaccination/Date Given: No - Review of Systems Constitutional: Fever, Malaise, Weakness, No Chills Eyes: No Symptoms Ears, Nose, & Throat: Ear Pain, Nose Congestion, Throat Pain Respiratory: Cough, No Dyspnea Cardiac: No Chest Pain, No Edema, No Syncope Abdominal/Gastrointestinal: Nausea, No Abdominal Pain, No Vomiting, No Diarrhea Genitourinary Symptoms: No Dysuria Musculoskeletal: Myalgias, No Back Pain, No Neck Pain Skin: No Rash Neurological: No Dizziness, No Focal Weakness, No Sensory Changes Psychological: No Symptoms Endocrine: No Symptoms All Other Systems: Reviewed and Negative - Past Medical History Pertinent Past Medical History: Yes Neurological History: Peripheral Neuropathy ENT History: No Pertinent History Cardiac History: No Pertinent History Respiratory History: Bronchitis Endocrine Medical History: Diabetes Type I, Hypothyroidism Musculoskeletal History: Degenerative Disk Disease, Fibromyalgia GI Medical History: GERD History: No Pertinent History Psycho-Social History: Anxiety, Depression Female Reproductive Disorders: Abnormal Uterine Bleeding, Menstrual Problems, Other Other Medical History: Protein C-difficiency. Irritable Bowel Syndrome, ADD - Past Surgical History Past Surgical History: Yes Neuro Surgical History: No Pertinent History Cardiac: Cardiac Catheterization Respiratory: No Pertinent History Gastrointestinal: Cholecystectomy Genitourinary: No Pertinent History Musculoskeletal: Orthopedic Surgery Female Surgical History: Section, Hysterectomy, Tubal Ligation Other Surgical History: TONSILLECTOMY - LUMBAR BACK SURGERY - Social History Smoking Status: Current every day smoker How long have you smoked: 20 Exposure to second hand smoke: No Alcohol Use: Socially Drug Use: none Patient Lives Alone: No Significant Family History: diabetes - Nursing Vital Signs Nursing Vital Signs: Initial Vital Signs Temperature 98.0 F 12/21/19 23:33 Pulse Rate 79 12/21/19 23:33 Respiratory Rate 20 12/21/19 23:33 Blood Pressure 164/81 12/21/19 23:33 O2 Sat by Pulse Oximetry 100 12/21/19 23:33 Pain Scale Pain Intensity 5 - Physical Exam General Appearance: no apparent distress, alert Eye Exam: PERRL/EOMI, eyes nml inspection Ears, Nose, Throat Exam: TMs normal, moist mucous membranes, pharyngeal erythema , tonsillar exudate Neck Exam: normal inspection, non-tender, supple, full range of motion, lymphadenopathy Respiratory Exam: normal breath sounds, lungs clear, airway intact, No respiratory distress Cardiovascular Exam: regular rate/rhythm, normal heart sounds Gastrointestinal/Abdomen Exam: soft, No tenderness Pelvic Exam: deferred Rectal Exam: deferred Back Exam: normal inspection, No CVA tenderness, No vertebral tenderness Extremity Exam: normal inspection, normal range of motion Neurologic Exam: alert, oriented x 3, cooperative, normal mood/affect, sensation nml, No motor deficits Skin Exam: normal color, warm, dry, No rash Lymphatic Exam: No adenopathy SpO2 Interpretation: normal SpO2: 99 O2 Delivery: Room Air - Course Nursing assessment & vital signs reviewed: Yes Ordered Tests: Active Orders 24 hr Category Date Time Status Pulse Oximetry (ED) STAT Care 12/21/19 23:46 Active Medication Summary Discontinued Medications Generic Name Dose Route Start Last Admin Trade Name Freq PRN Reason Stop Dose Admin Amoxicillin/Clavulanate Potassium 875 mg 12/21/19 23:49 12/21/19 23:54 Augmentin 875-125 Tablet PO 12/21/19 23:50 875 mg STAT ONE Administration Amoxicillin/Clavulanate Potassium Confirm 12/21/19 23:54 Augmentin 875-125 Tablet Administered 12/21/19 23:55 Dose 875 mg .ROUTE .STK-MED ONE Lab/Rad Data: Laboratory Results 12/21/19 12/21/19 Range/Units Unknown Unknown Influenza Type A Ag NEGATIVE (NEGATIVE) Influenza Type B Ag NEGATIVE (NEGATIVE) RSV (PCR) NEGATIVE (Negative) Group A Strep Antibody NEGATIVE (NEGATIVE) - Progress Progress: improved, re-examined Air Movement: good Progress Note: 12/22/19 01:15 dicussed limitations of testing with pt and that undetected pathology may still be evolving , including her risk of PE even though she is treated at therapeutic INR by last testing per pt , this does however have URI symptoms most consistent with infectious as her and other family have and she is willing to take that risk and has the capacity for that choice fpr DC outpt Tx rather than furhter w/u in ER or hosp; ; ; Blood Culture(s) Obtained: No Antibiotics given: Yes Counseled pt/family regarding: lab results, diagnosis, need for follow-up - Departure Departure Disposition: Home Clinical Impression: Exudative pharyngitis, Sinusitis, Tracheitis Condition: Good Critical Care Time: No Referrals: JAMIME CHRISTIAN [Primary Care Provider] - Instructions: Sore Throat, Adult (DC) Additional Instructions: followup with your Dr this week and return meantime if not improving or other concerns Prescriptions: Amox Tr/Potass Clav. 875 mg [Augmentin 875-125 Tablet] 875 mg PO BID #20 tablet
[2019-12-21] MEDS ORDERED: Augmentin 875-125 Tablet PO ONE (23:49)
[2019-12-21] MEDS ORDERED: Augmentin 875-125 Tablet ONE (23:54)
[2019-12-22 00:50] LABS: INFLUENZA A NEGATIVE (NEGATIVE); INFLUENZA B NEGATIVE (NEGATIVE); RESPIRATORY SYNCTIAL VIRUS NEGATIVE (Negative)
[2019-12-22 01:20] VITALS: O2SAT 99
[2019-12-22 01:33] VITALS: BP 127/77; PULSE 74
== END 2019-12-22 01:39 | disposition home or self-care (01) ==
LOC: ED 22:47
DX: J02.9 Acute pharyngitis, unspecified (principal); J32.9 Chronic sinusitis, unspecified; J04.10 Acute tracheitis without obstruction; R50.9 Fever, unspecified; R05 Cough; Z79.899 Other long term (current) drug therapy; Z79.01 Long term (current) use of anticoagulants; Z79.891 Long term (current) use of opiate analgesic; E03.9 Hypothyroidism, unspecified; E10.9 Type 1 diabetes mellitus without complications; J06.9 Acute upper respiratory infection, unspecified
CPT/HCPCS: 87631; 87651; 94760; 99284; A9270-GY

== ENCOUNTER 2021-04-28 13:16 | Emergency (ER) | payer MEDICARE ==
[2021-04-28] MEDS ORDERED: MORPHINE SULFATE 4 MG INJ IV ONE ×2 (13:40→14:49)
[2021-04-28] MEDS ORDERED: Sodium Chloride 0.9% 1000 ML 1,000 ML IV STA (13:40)
[2021-04-28] MEDS ORDERED: Zofran 4 MG/2 ML VIAL IV ONE (13:40)
[2021-04-28] MEDS ORDERED: Zofran 4 MG/2 ML VIAL ONE (13:44)
[2021-04-28] MEDS ORDERED: MORPHINE SULFATE 4 MG INJ ONE ×2 (13:44→14:49)
[2021-04-28] MEDS ORDERED: Sodium Chloride 0.9% 1000 ML 1,000 ML ONE (13:44)
--- NOTE | 2021-04-28 14:05 | ERPHSYRPT ---
- History of Present Illness Time Seen by Provider: 04/28/21 13:27 Historian: patient Exam Limitations: no limitations Patient Subjective Stated Complaint: PAtient started having abdominal pain 0500 and has had diarrhea with nausea and stomach cramps. States stool is watery Triage Nursing Assessment: patient presents to ED with abdominal pain and watery diarrhea. States she has had nausea but no vomiting at this time. Bowel sounds active x4, tender upon palpation. Rating pain 9/10 Physician History: 40 years old female with history of IBS, chronic back pain, diabetes mellitus presented in the ER with chief complaint of sudden onset upper abdominal pain followed by multiple episodes of loose watery stool with no hematochezia since 5 AM. Patient reports sharp cramping moderate to severe intensity pain without a ny significant aggravating or relieving factors. She is feeling worsening nausea but no vomiting. Feeling weak fatigued and tired. Timing/Duration: today, constant, sudden, worse Activities at Onset: sleep Quality: cramping, sharpness Abdominal Pain Onset Location: RUQ, LUQ, epigastric, periumbilical Pain Radiation: no radiation Severity of Pain-Max: severe Severity of Pain-Current: moderate Modifying Factors: Improves With: nothing Associated Symptoms: nausea, No vomiting Previous symptoms: no prior history Allergies/Adverse Reactions: No Known Drug Allergies Allergy (Verified 04/28/21 13:38) Home Medications: PANTOPRAZOLE 40 mg Tablet [Protonix 40MG Tablet] 40 mg PO BID 05/25/13 [History] Cetirizine HCl [Zyrtec] 10 mg PO DAILY PRN 08/15/13 [History] Linaclotide [Linzess] 145 mcg PO DAILY 11/23/13 [History] AMITRIPTYLINE HCL 50 mg Tab [AMITRIPTYLINE HCL 50 mg Tablet] 50 mg PO HS 10/16/14 [History] Canagliflozin [Invokana] 250 mg PO DAILY 04/14/15 [History] Duloxetine HCl [Cymbalta] 60 mg PO DAILY 05/31/16 [History] Insulin Detemir [Levemir] 50 unit SQ DAILY 05/31/16 [History] Cyclobenzaprine HCl 10 mg [Flexeril 10 MG] 10 mg PO HS 08/29/16 [History] Levothyroxine Sodium 25 mcg PO DAILY 07/05/17 [History] Warfarin Sodium 5 mg [Coumadin 5 MG] 7.5 mg PO DAILY 07/05/17 [History] Warfarin Sodium 5 mg [Coumadin 5 MG] 10 mg PO UD 07/05/17 [History] Dextroamphetamine/Amphetamine [Adderall 20 mg Tablet] 20 mg PO DAILY 11/23/17 [History] Gabapentin 600 mg PO HS 01/30/18 [History] Oxycodone HCl [Oxaydo] 7.5 mg PO Q6H PRN PRN 01/30/18 [History] Varenicline Tartrate [Chantix] 1 each PO BID 01/30/18 [History] Amphet Asp/Amphet/D-Amphet [Adderall 5 mg Tablet] 30 mg PO DAILY 04/28/21 [History] Baclofen 10 mg [Lioresal 10 mg] 10 mg PO BID 04/28/21 [History] Insulin Glargine,Hum.rec.anlog [Basaglar Kwikpen U-100] 100 unit SQ DAILY 04/28/21 [History] Insuln Asp Prt/Insulin Aspart [Novolog Mix 70-30 Flexpen Syrn] 100 units SQ MDD 50 04/28/21 [History] Semaglutide [Ozempic] 0.25 mg SQ WEEKLY 04/28/21 [History] Vortioxetine Hydrobromide [Brintellix] 20 mg PO 04/28/21 [History] lisinopriL [Zestril] 2.5 mg PO DAILY 04/28/21 [History] Hx Tetanus, Diphtheria Vaccination/Date Given: Yes Hx Influenza Vaccination/Date Given: No Hx Pneumococcal Vaccination/Date Given: No Immunizations Up to Date: Yes Travel Risk - International Travel Have you traveled outside of the country in past 3 weeks: No - Coronavirus Screening Are you exhibiting any of the following symptoms?: No Close contact with a COVID-19 positive Pt in past 14-21 Days: No - Vaccine Status Have you recieved a Covid-19 vaccination: No - Review of Systems Constitutional: Fatigue, Weakness Eyes: No Symptoms Ears, Nose, & Throat: No Symptoms Respiratory: No Symptoms Cardiac: No Symptoms Abdominal/Gastrointestinal: Abdominal Pain, Nausea, Diarrhea Genitourinary Symptoms: No Symptoms Musculoskeletal: No Symptoms Skin: No Symptoms Neurological: No Symptoms Psychological: No Symptoms Endocrine: No Symptoms Hematologic/Lymphatic: No Symptoms Immunological/Allergic: No Symptoms - Past Medical History Pertinent Past Medical History: Yes Neurological History: Peripheral Neuropathy ENT History: No Pertinent History Cardiac History: No Pertinent History Respiratory History: Bronchitis Endocrine Medical History: Diabetes Type I, Hypothyroidism Musculoskeletal History: Degenerative Disk Disease, Fibromyalgia GI Medical History: GERD History: No Pertinent History Psycho-Social History: Anxiety, Depression Female Reproductive Disorders: Abnormal Uterine Bleeding, Menstrual Problems, Other Other Medical History: Protein C-difficiency. Irritable Bowel Syndrome, ADD - Past Surgical History Past Surgical History: Yes Neuro Surgical History: No Pertinent History Cardiac: Cardiac Catheterization Respiratory: No Pertinent History Gastrointestinal: Cholecystectomy Genitourinary: No Pertinent History Musculoskeletal: Orthopedic Surgery Female Surgical History: Section, Hysterectomy, Tubal Ligation Other Surgical History: TONSILLECTOMY - LUMBAR BACK SURGERY - Social History Smoking Status: Current every day smoker How long have you smoked: 20 Exposure to second hand smoke: Yes Alcohol Use: Socially Drug Use: none Patient Lives Alone: No Significant Family History: diabetes - Female History Hx Now: No (Hysterectomy) - Nursing Vital Signs Nursing Vital Signs: Initial Vital Signs Temperature 98 F 04/28/21 13:24 Pulse Rate 92 H 04/28/21 13:24 Blood Pressure 106/69 04/28/21 13:24 O2 Sat by Pulse Oximetry 98 04/28/21 13:24 Pain Scale Pain Intensity 5 - Physical Exam General Appearance: no apparent distress, alert Eye Exam: PERRL/EOMI, eyes nml inspection Ears, Nose, Throat Exam: normal ENT inspection, pharynx normal Neck Exam: normal inspection, non-tender, supple, full range of motion Respiratory Exam: normal breath sounds, lungs clear Cardiovascular Exam: regular rate/rhythm, normal heart sounds Gastrointestinal/Abdomen Exam: soft, normal bowel sounds, tenderness (Upper abdomen) Extremity Exam: normal inspection, normal range of motion, pelvis stable Neurologic Exam: alert, oriented x 3, cooperative Skin Exam: normal color SpO2 Interpretation: normal SpO2: 98 O2 Delivery: Room Air Ordered Tests: Active Orders 24 hr Category Date Time Status IV Insertion STAT Care 04/28/21 13:40 Active NPO (ED) STAT Care 04/28/21 13:40 Active POCT Glucose Check STAT Care 04/28/21 13:48 Active ABDOMEN AND PELVIS W CONTRAST [CT] Stat Exams 04/28/21 13:40 Completed CBC W DIFF Stat Lab 04/28/21 13:58 Completed CMP Stat Lab 04/28/21 14:59 Completed LIPASE Stat Lab 04/28/21 13:58 Completed POCT GLUCOSE Stat Lab 04/28/21 13:41 Completed PROTIME WITH INR Stat Lab 04/28/21 14:09 Completed UA W/RFX UR CULTURE Stat Lab 04/28/21 13:43 Completed Medication Summary Discontinued Medications Generic Name Dose Route Start Last Admin Trade Name Andie PRN Reason Stop Dose Admin Sodium Chloride 1,000 mls @ 999 mls/hr 04/28/21 13:40 04/28/21 14:48 Sodium Chloride 0.9% 1000 Ml IV 04/28/21 14:40 Infused .Q1H1M STA Infusion Sodium Chloride Confirm 04/28/21 13:44 Sodium Chloride 0.9% 1000 Ml Administered 04/28/21 13:45 Dose 1,000 mls @ ud .ROUTE .STK-MED ONE Morphine Sulfate 4 mg 04/28/21 13:40 04/28/21 13:48 Morphine Sulfate 4 Mg Inj IV 04/28/21 13:41 4 mg STAT ONE Administration Morphine Sulfate Confirm 04/28/21 13:44 Morphine Sulfate 4 Mg Inj Administered 04/28/21 13:45 Dose 4 mg .ROUTE .STK-MED ONE Morphine Sulfate 4 mg 04/28/21 14:49 04/28/21 14:50 Morphine Sulfate 4 Mg Inj IV 04/28/21 14:50 4 mg STAT ONE Administration Morphine Sulfate Confirm 04/28/21 14:49 Morphine Sulfate 4 Mg Inj Administered 04/28/21 14:50 Dose 4 mg .ROUTE .STK-MED ONE Ondansetron HCl 4 mg 04/28/21 13:40 04/28/21 13:48 Zofran 4 Mg/2 Ml Vial IV 04/28/21 13:41 4 mg STAT ONE Administration Ondansetron HCl Confirm 04/28/21 13:44 Zofran 4 Mg/2 Ml Vial Administered 04/28/21 13:45 Dose 4 mg .ROUTE .STK-MED ONE Lab/Rad Data: Laboratory Result Diagrams 04/28/21 13:58 04/28/21 14:59 Laboratory Results 04/28/21 04/28/21 04/28/21 Range/Units 14:59 14:09 13:58 WBC (4.0-10.5) K/mm3 RBC (4.1-5.4) M/mm3 Hgb (12.0-16.0) gm/dl Hct (35-47) % MCV (78-100) fl MCH (26-32) pg MCHC (32-36) g/dl RDW (11.5-14.0) % Plt Count (150-450) K/mm3 MPV (7.5-11.0) fl Gran % (36.0-66.0) % Eos # (Auto) (0-0.5) Absolute Lymphs (auto) (1.0-4.6) Absolute Monos (auto) (0.0-1.3) Lymphocytes % (24.0-44.0) % Monocytes % (0.0-12.0) % Eosinophils % (0.00-5.0) % Basophils % (0.0-0.4) % Absolute Granulocytes (1.4-6.9) Basophils # (0-0.4) PT 36.3 H (9.4-12.5) SECONDS INR 3.08 H (0.8-3.0) Sodium 140 Cancelled Potassium 4.2 Cancelled Chloride 109 H Cancelled Carbon Dioxide 27 Cancelled Anion Gap 8.6 Cancelled BUN 15 Cancelled Creatinine 0.68 Cancelled Estimated GFR > 60.0 Cancelled Glucose 84 Cancelled POC Glucometer (74 to 106) mg/dL Calcium 8.2 L Cancelled Total Bilirubin 0.50 Cancelled AST 246 H Cancelled ALT 95 H Cancelled Alkaline Phosphatase 106 Cancelled Serum Total Protein 6.1 L Cancelled Albumin 3.6 Cancelled Lipase 62 (23-300) U/L Urine Color (YELLOW) Urine Appearance (CLEAR) Urine pH (5-6) Ur Specific [place] (1.005-1.025) Urine Protein (Negative) Urine Ketones (NEGATIVE) Urine Blood (0-5) [place]/ul Urine Nitrite (NEGATIVE) Urine Bilirubin (NEGATIVE) Urine Urobilinogen (0-1) mg/dL Ur Leukocyte Esterase (NEGATIVE) Urine WBC (Auto) (0-5) /HPF Urine RBC (Auto) (0-2) /HPF U Epithel Cells (Auto) (FEW) /HPF Urine Bacteria (Auto) (NEGATIVE) /HPF Urine Mucus (Auto) (NEGATIVE) /HPF Urine Culture Reflexed (NO) Urine Glucose (NEGATIVE) mg/dL 04/28/21 04/28/21 04/28/21 Range/Units 13:58 13:43 13:41 WBC 11.8 H (4.0-10.5) K/mm3 RBC 4.75 (4.1-5.4) M/mm3 Hgb 14.3 (12.0-16.0) gm/dl Hct 44.7 (35-47) % MCV 94.1 (78-100) fl MCH 30.1 (26-32) pg MCHC 32.0 (32-36) g/dl RDW 13.0 (11.5-14.0) % Plt Count 311 (150-450) K/mm3 MPV 10.0 (7.5-11.0) fl Gran % 72.4 H (36.0-66.0) % Eos # (Auto) 0.25 (0-0.5) Absolute Lymphs (auto) 2.25 (1.0-4.6) Absolute Monos (auto) 0.74 (0.0-1.3) Lymphocytes % 19.1 L (24.0-44.0) % Monocytes % 6.3 (0.0-12.0) % Eosinophils % 2.1 (0.00-5.0) % Basophils % 0.1 (0.0-0.4) % Absolute Granulocytes 8.54 H (1.4-6.9) Basophils # 0.01 (0-0.4) PT (9.4-12.5) SECONDS INR (0.8-3.0) Sodium Potassium Chloride Carbon Dioxide Anion Gap BUN Creatinine Estimated GFR Glucose POC Glucometer 97 (74 to 106) mg/dL Calcium Total Bilirubin AST ALT Alkaline Phosphatase Serum Total Protein Albumin Lipase (23-300) U/L Urine Color YELLOW (YELLOW) Urine Appearance CLEAR (CLEAR) Urine pH 5.0 (5-6) Ur Specific [place] 1.026 (1.005-1.025) Urine Protein NEGATIVE (Negative) Urine Ketones NEGATIVE (NEGATIVE) Urine Blood SMALL (0-5) [place]/ul Urine Nitrite NEGATIVE (NEGATIVE) Urine Bilirubin NEGATIVE (NEGATIVE) Urine Urobilinogen NEGATIVE (0-1) mg/dL Ur Leukocyte Esterase NEGATIVE (NEGATIVE) Urine WBC (Auto) 0-2 (0-5) /HPF Urine RBC (Auto) 0-2 (0-2) /HPF U Epithel Cells (Auto) RARE (FEW) /HPF Urine Bacteria (Auto) NONE (NEGATIVE) /HPF Urine Mucus (Auto) SLIGHT (NEGATIVE) /HPF Urine Culture Reflexed NO (NO) Urine Glucose NEGATIVE (NEGATIVE) mg/dL - Progress Progress: improved, re-examined Progress Note: 04/28/21 17:02 40 years old is evaluated for upper abdominal pain with nausea and multiple episodes of loose watery stool. She is given fluid bolus along with symptomatic treatment for pain, on reevaluation feeling much better. Work-up showed white count of 11, elevated liver enzymes but does have history of elevated transaminases in the past and normal bilirubin. She does not have any episode of diarrhea while in the ER. I have obtained CT abdomen pelvis with contrast which showed finding consistent with gastroenteritis without any bowel wall thickening. I believe she has viral gastroenteritis versus IBS flareup with diarrhea, recommended supportive care with pain medication which she is on and hydration and taking Zofran as needed. Does not have any fever and stable vitals, discussed signs symptoms of worsening needing return to ER which she seemed understanding. Stable for discharge. 04/28/21 17:03 Counseled pt/family regarding: lab results, diagnosis, need for follow-up, rad results - Departure Departure Disposition: Home Clinical Impression: Acute gastroenteritis, Elevated liver enzymes Condition: Stable Critical Care Time: No Referrals: JAMMIE CHRISTIAN [Primary Care Provider] - (1-2 days for reevaluation) Instructions: Acute Abdomen (Belly Pain) Additional Instructions: Keep yourself well-hydrated 4. White liquid with high sugar to prevent worsening of diarrhea. Take Zofran as needed. Continue with your pain medications as recommended. Slowly introduce soft diet followed by regular if tolerated. Return to ER for intractable diarrhea/vomiting/abdominal pain/fever chills etc. Prescriptions: Ondansetron ODT 4 MG [Zofran Odt 4 mg] 4 mg PO Q6H PRN PRN #10 tab.rapdis PRN Reason: Vomiting
[2021-04-28 14:22] LABS: Absolute Neutrophil Ct (ANC) 8.54 (1.4-6.9); BASOPHIL % 0.1 % (0.0-0.4); Basophil (Absolute #) 0.01 (0-0.4); Eosinophil % 2.1 % (0.00-5.0); Eosinophil (Absolute #) 0.25 (0-0.5); Hematocrit 44.7 % (35-47); Hemoglobin 14.3 gm/dl (12.0-16.0); Lymphocyte (Absolute #) 2.25 (1.0-4.6); Lymphocytes % 19.1 % (24.0-44.0); Mean Cell Volume 94.1 fl (78-100); Mean Corpuscular Hemoglobin 30.1 pg (26-32); Monocyte (Absolute #) 0.74 (0.0-1.3); Monocytes % 6.3 % (0.0-12.0); Neutrophil % 72.4 % (36.0-66.0); Platelet Count 311 K/mm3 (150-450); Red Blood Count 4.75 M/mm3 (4.1-5.4); White Blood Count 11.8 K/mm3 (4.0-10.5)
[2021-04-28 14:35] LABS: INR 3.08 (0.8-3.0); PROTIME 36.3 SECONDS (9.4-12.5)
[2021-04-28 15:39] LABS: ALBUMIN 3.6 g/dL (3.5-5.0); ALKALINE PHOSPHATASE 106 U/L (38-126); ANION GAP 8.6 MEQ/L (5-15); BLOOD UREA NITROGEN 15 mg/dL (7-17); CHLORIDE 109 mmol/L (98-107); Calcium 8.2 mg/dL (8.4-10.2); Carbon Dioxide 27 mmol/L (22-30); Creatinine 1 0.68 mg/dL (0.52-1.04); EST GLOMERULAR FILTRATION RATE > 60.0 ML/MIN; Glucose 84 mg/dL (74-106); Potassium 4.2 mmol/L (3.5-5.1); SGOT/AST 246 U/L (14-36); SGPT/ALT 95 U/L (0-35); SODIUM 140 mmol/L (137-145); Total Protein 6.1 g/dL (6.3-8.2)
[2021-04-28 15:48] LABS: Appearance CLEAR (CLEAR); Bilirubin NEGATIVE (NEGATIVE); Blood SMALL Ery/ul (0-5); Epithelial Cells RARE /HPF (FEW); Glucose NEGATIVE (NEGATIVE); Ketones NEGATIVE (NEGATIVE); Leukocyte Esterase NEGATIVE (NEGATIVE); Mucus SLIGHT /HPF (NEGATIVE); Nitrite NEGATIVE (NEGATIVE); Protein,Urine Dip NEGATIVE (Negative); RBC 0-2 /HPF (0-2); Specific Gravity 1.026 (1.005-1.025); Urobilinogen NEGATIVE mg/dL (0-1); WBC 0-2 /HPF (0-5)
--- NOTE | 2021-04-28 16:56 | XRAY ---
Exam: CT of the abdomen and pelvis with IV contrast from 04/28/2021. CTDI: 11.51 mGy Comparison: CT of the abdomen and pelvis without IV contrast 04/14/2015. Indication: 40-year-old female with stomach pain, nausea, and diarrhea beginning this morning; history of irritable bowel syndrome; surgical history of prior cholecystectomy, hysterectomy, and lower back surgery. Technique: Post-IV contrast axial images were obtained through the abdomen and pelvis during automated injection of 80 cc of Isovue-370 contrast material. Reconstructed coronal and axial images were obtained. Delayed axial images were obtained as well. Findings: There is minimal linear scarring/chronic linear atelectasis at the posterior left lung base representing no significant change from 04/14/2015. No posterior pleural fluid is seen. I see no evidence of bowel obstruction. Scattered fluid is seen within the distal small bowel lumen and throughout the colon to the level of the rectum which may be due to the patient's diarrhea or enterocolitis. I detect no significant colon wall thickening or pericolonic inflammatory changes to suggest colitis. There is no free intraperitoneal air or free intraperitoneal fluid. Surgical clips consistent with prior cholecystectomy are seen within the right upper quadrant. The liver is of unremarkable size and uniform attenuation. Minimal intrahepatic and extrahepatic biliary duct distention is seen consistent with the patient's prior cholecystectomy. The spleen appears of normal size and reveals no mass. An oval-shaped 2.4 cm splenule is again seen medial to the lower aspect of the spleen. The pancreas and adrenal glands appear unremarkable. The kidneys are of normal size and average shape. No renal calculi, hydronephrosis, or renal mass is seen. The kidneys function on delayed images. The ureters are seen in portions on the delayed images and appear unremarkable. No gross urinary bladder abnormality is seen. Mild vascular calcification is seen within the proximal left common iliac artery. No abdominal aortic aneurysm is seen. I see no definite abnormal retroperitoneal lymphadenopathy, although I believe there are some nonenlarged lymph nodes seen within the left side of the peritoneal cavity (the largest measuring 1.1 cm in diameter) and lower left periaortic area. This can be seen on the prior study as well. There is no significant increased attenuation of the mesenteric fat, as noted on 04/14/2015. I see no evidence of acute appendicitis. The uterus is surgically absent. The urinary bladder appears unremarkable. No abnormal pelvic adnexal mass, abnormal pelvic lymphadenopathy, or free intraperitoneal fluid is seen. The skeleton reveals no acute fracture or other aggressive bone lesion. Moderate degenerative disc disease is seen at both L4-L5 and L5-S1. Narrowing of the L4-L5 interspace height is a bit more pronounced as compared to 04/14/2015. I note some L4-L5 and L5-S1 facet joint arthropathy. There is almost a 90 ventral angulation of the distal 2 coccygeal segments on the sagittal images representing no change. Is there any history of prior trauma at this level? Impression: 1. Partially fluid-filled distal small bowel loops and some scattered fluid throughout the colon lumen to the level of the rectum is seen. This may be due to the patient's diarrhea, or alternatively, enterocolitis. I see no significant bowel wall thickening or pericolonic inflammatory stranding. No abscess is seen. 2. Status post cholecystectomy and hysterectomy. 3. I again note mild prominence of some intraperitoneal lymph nodes to the left of midline and within the distal left periaortic region without prior noted haziness surrounding the left-sided lymph nodes. The largest of these lymph nodes measures about 1.1 cm in diameter. 4. No other acute process is seen within the abdomen or pelvis.
[2021-04-28 17:06] VITALS: BP 108/54; PULSE 84; O2SAT 98
== END 2021-04-28 17:13 | disposition home or self-care (01) ==
LOC: ED 13:16
DX: K52.9 Noninfective gastroenteritis and colitis, unspecified (principal)
CPT/HCPCS: 36000; 36415; 74177; 80053; 81001; 82947; 83690; 85025; 85610; 96374; 96375; 96376; 99284; J2270; J2405

== ENCOUNTER 2021-06-16 12:45 | Emergency (ER) | payer MEDICARE ==
[2021-06-16] MEDS ORDERED: Sodium Chloride 0.9% 1000 ML 1,000 ML IV STA (13:07)
[2021-06-16] MEDS ORDERED: SUBLIMAZE 100 MCG/2 ML IV ONE ×2 (13:07→14:45)
[2021-06-16] MEDS ORDERED: Zofran 4 MG/2 ML VIAL IV ONE (13:10)
[2021-06-16] MEDS ORDERED: SUBLIMAZE 100 MCG/2 ML ONE ×2 (13:11→14:48)
[2021-06-16] MEDS ORDERED: Zofran 4 MG/2 ML VIAL ONE (13:11)
[2021-06-16] MEDS ORDERED: Sodium Chloride 0.9% 1000 ML 1,000 ML ONE (13:12)
[2021-06-16 13:29] LABS: Absolute Neutrophil Ct (ANC) 5.26 (1.4-6.9); BASOPHIL % 0.4 % (0.0-0.4); Basophil (Absolute #) 0.04 (0-0.4); Eosinophil % 6.2 % (0.00-5.0); Eosinophil (Absolute #) 0.65 (0-0.5); Hematocrit 43.7 % (35-47); Lymphocyte (Absolute #) 3.83 (1.0-4.6); Lymphocytes % 36.3 % (24.0-44.0); Mean Cell Volume 93.6 fl (78-100); Mean Platelet Volume 9.9 fl (7.5-11.0); Monocyte (Absolute #) 0.76 (0.0-1.3); Monocytes % 7.2 % (0.0-12.0); Neutrophil % 49.9 % (36.0-66.0); Platelet Count 329 K/mm3 (150-450); Red Blood Count 4.67 M/mm3 (4.1-5.4); Red Cell Distribution Width 13.7 % (11.5-14.0); White Blood Count 10.5 K/mm3 (4.0-10.5)
[2021-06-16 13:36] LABS: INR 4.32 (0.8-3.0)
[2021-06-16 13:38] LABS: Appearance CLEAR (CLEAR); Bilirubin NEGATIVE (NEGATIVE); Blood SMALL Ery/ul (0-5); Glucose NEGATIVE (NEGATIVE); Ketones NEGATIVE (NEGATIVE); Leukocyte Esterase NEGATIVE (NEGATIVE); Mucus SLIGHT /HPF (NEGATIVE); Nitrite NEGATIVE (NEGATIVE); Protein,Urine Dip NEGATIVE (Negative); Specific Gravity 1.014 (1.005-1.025); Urobilinogen NEGATIVE mg/dL (0-1)
[2021-06-16 13:43] LABS: ALBUMIN 4.3 g/dL (3.5-5.0); ALKALINE PHOSPHATASE 90 U/L (38-126); AMYLASE 44 U/L (30-110); ANION GAP 12.9 MEQ/L (5-15); BLOOD UREA NITROGEN 12 mg/dL (7-17); CHLORIDE 101 mmol/L (98-107); Carbon Dioxide 31 mmol/L (22-30); Creatinine 1 0.82 mg/dL (0.52-1.04); EST GLOMERULAR FILTRATION RATE > 60.0 ML/MIN; Glucose 81 mg/dL (74-106); LIPASE 75 U/L (23-300); Potassium 3.6 mmol/L (3.5-5.1); SGOT/AST 43 U/L (14-36); SGPT/ALT 23 U/L (0-35); SODIUM 142 mmol/L (137-145); Total Protein 7.2 g/dL (6.3-8.2)
[2021-06-16 13:53] LABS: Amphetamine,Urine NEGATIVE (NEGATIVE); Barbiturate,Urine NEGATIVE (NEGATIVE); Benzodiazepine,Urine NEGATIVE (NEGATIVE); Cocaine,Urine NEGATIVE (NEGATIVE); Methadone,Urine NEGATIVE (NEGATIVE); Opiate,Urine POSITIVE (NEGATIVE); PCP,Urine NEGATIVE (NEGATIVE); THC,Urine POSITIVE (NEGATIVE)
[2021-06-16 14:45] VITALS: PULSE 68; O2SAT 99
--- NOTE | 2021-06-16 14:53 | XRAY ---
Indication: Short of breath, nausea, COPD, chronic bronchitis, and flank pain. Multiple contiguous axial images obtained through the chest using 80 cc Isovue 370 contrast. Comparison: None Lungs demonstrates minimal subsegmental atelectasis/scarring in the posterior left lung base. Remaining lungs clear. Heart not enlarged. Aorta is normal in course and caliber. No pathologic mediastinal/hilar lymphadenopathy. Bony thorax intact. CT abdomen/pelvis reported separately. Impression: Minimal left basilar atelectasis/scarring. Remaining CT chest with contrast exam is normal.
--- NOTE | 2021-06-16 14:57 | XRAY ---
Indication: Short of breath, nausea, COPD, chronic bronchitis, and flank pain. Multiple contiguous axial images obtained through the abdomen and pelvis using 80 cc Isovue 370 contrast. Comparison: April 28, 2021 CT chest reported separately. Noncontrasted stomach and bowel loops nonobstructed with normal appendix. Again cholecystectomy and hysterectomy. No free fluid/air. Remaining liver, pancreas, spleen, adrenal glands, kidneys, ureters, bladder, and aorta are unremarkable. No pathologic retroperitoneal lymphadenopathy. Osseous structures intact again with L4-S1 degenerative disc disease. Impression: Continue negative CT abdomen/pelvis with contrast exam again with incidental L4-S1 degenerative disc disease.
[2021-06-16 15:03] VITALS: BP 144/67
--- NOTE | 2021-06-16 15:19 | ERPHSYRPT ---
- History of Present Illness Time Seen by Provider: 06/16/21 13:00 Historian: patient Exam Limitations: no limitations Patient Subjective Stated Complaint: Pt states that her left back was hurting first a couple of days ago and then her right back began hurting and she states that they radiate to her front abdomen and it feels like it's on fire Triage Nursing Assessment: Pt brought to the ER by her daughter, hypertensive, rates pain 10/10, pulses normal, tearful, nauseous, SOB, weak Physician History: Patient is a 40-year-old white female who presents with back pain which goes over both sides of the lower back and then around to the front with a burning pain in her abdomen which she rates 10 of 10. States that it feels like her entire abdomen is "on fire. She has nausea says she can eat short of breath weak no fever chills or sweats started 2 days ago and getting worse. She does have a history of degenerative joint disease in her back and bursitis in her hips. Timing/Duration: day(s) (2) Activities at Onset: none Quality: burning, cramping, throbbing Abdominal Pain Onset Location: generalized abdomen Pain Radiation: back Severity of Pain-Max: severe Severity of Pain-Current: mild Modifying Factors: Improves With: nothing Associated Symptoms: back, loss of appetite, nausea, weakness Previous symptoms: same symptoms as today Allergies/Adverse Reactions: No Known Drug Allergies Allergy (Verified 06/16/21 13:04) Home Medications: PANTOPRAZOLE 40 mg Tablet [Protonix 40MG Tablet] 40 mg PO BID 05/25/13 [History] Cetirizine HCl [Zyrtec] 10 mg PO DAILY PRN 08/15/13 [History] Linaclotide [Linzess] 145 mcg PO DAILY 11/23/13 [History] AMITRIPTYLINE HCL 50 mg Tab [AMITRIPTYLINE HCL 50 mg Tablet] 50 mg PO HS 10/16/14 [History] Canagliflozin [Invokana] 250 mg PO DAILY 04/14/15 [History] Duloxetine HCl [Cymbalta] 60 mg PO DAILY 05/31/16 [History] Insulin Detemir [Levemir] 50 unit SQ DAILY 05/31/16 [History] Cyclobenzaprine HCl 10 mg [Flexeril 10 MG] 10 mg PO HS 08/29/16 [History] Levothyroxine Sodium 25 mcg PO DAILY 07/05/17 [History] Warfarin Sodium 5 mg [Coumadin 5 MG] 7.5 mg PO DAILY 07/05/17 [History] Warfarin Sodium 5 mg [Coumadin 5 MG] 10 mg PO UD 07/05/17 [History] Dextroamphetamine/Amphetamine [Adderall 20 mg Tablet] 20 mg PO DAILY 11/23/17 [History] Gabapentin 600 mg PO HS 01/30/18 [History] Oxycodone HCl [Oxaydo] 7.5 mg PO Q6H PRN PRN 01/30/18 [History] Varenicline Tartrate [Chantix] 1 each PO BID 01/30/18 [History] Amphet Asp/Amphet/D-Amphet [Adderall 5 mg Tablet] 30 mg PO DAILY 04/28/21 [History] Baclofen 10 mg [Lioresal 10 mg] 10 mg PO BID 04/28/21 [History] Insulin Glargine,Hum.rec.anlog [Basaglar Kwikpen U-100] 100 unit SQ DAILY [History] Insuln Asp Prt/Insulin Aspart [Novolog Mix 70-30 Flexpen Syrn] 100 units SQ UD MDD 50 04/28/21 [History] Semaglutide [Ozempic] 0.25 mg SQ WEEKLY 04/28/21 [History] Vortioxetine Hydrobromide [Brintellix] 20 mg PO UD 04/28/21 [History] lisinopriL [Zestril] 2.5 mg PO DAILY 04/28/21 [History] Hx Tetanus, Diphtheria Vaccination/Date Given: Yes Hx Influenza Vaccination/Date Given: No Hx Pneumococcal Vaccination/Date Given: No Travel Risk - International Travel Have you traveled outside of the country in past 3 weeks: No - Coronavirus Screening Are you exhibiting any of the following symptoms?: No Close contact with a COVID-19 positive Pt in past 14-21 Days: No - Vaccine Status Have you recieved a Covid-19 vaccination: No - Review of Systems Constitutional: No Fever, No Chills Eyes: No Symptoms Ears, Nose, & Throat: No Symptoms Respiratory: No Cough, No Dyspnea Cardiac: No Chest Pain, No Edema, No Syncope Abdominal/Gastrointestinal: Abdominal Pain, Nausea, Appetite Changes, No Vomiting, No Diarrhea Genitourinary Symptoms: No Dysuria Musculoskeletal: No Back Pain, No Neck Pain Skin: No Rash Neurological: No Dizziness, No Focal Weakness, No Sensory Changes Psychological: No Symptoms Endocrine: No Symptoms All Other Systems: Reviewed and Negative - Past Medical History Pertinent Past Medical History: Yes Neurological History: Peripheral Neuropathy ENT History: No Pertinent History Cardiac History: No Pertinent History Respiratory History: Bronchitis Endocrine Medical History: Diabetes Type I, Hypothyroidism Musculoskeletal History: Degenerative Disk Disease, Fibromyalgia GI Medical History: GERD History: No Pertinent History Psycho-Social History: Anxiety, Depression Female Reproductive Disorders: Abnormal Uterine Bleeding, Menstrual Problems, Other Other Medical History: Protein C-difficiency. Irritable Bowel Syndrome, ADD - Past Surgical History Past Surgical History: Yes Neuro Surgical History: No Pertinent History Cardiac: Cardiac Catheterization Respiratory: No Pertinent History Gastrointestinal: Cholecystectomy Genitourinary: No Pertinent History Musculoskeletal: Orthopedic Surgery Female Surgical History: Section, Hysterectomy, Tubal Ligation Other Surgical History: TONSILLECTOMY - LUMBAR BACK SURGERY - Social History Smoking Status: Current every day smoker How long have you smoked: 20 Exposure to second hand smoke: Yes Alcohol Use: Socially Drug Use: none Patient Lives Alone: No Significant Family History: diabetes - Female History Hx Now: No - Nursing Vital Signs Nursing Vital Signs: Initial Vital Signs Temperature 98.2 F 06/16/21 12:52 Pulse Rate 88 06/16/21 12:52 Blood Pressure 146/89 06/16/21 12:52 O2 Sat by Pulse Oximetry 99 06/16/21 12:52 Pain Scale Pain Intensity [Back] 10 Pain Intensity 6 - Physical Exam General Appearance: mild distress, alert Eye Exam: PERRL/EOMI, eyes nml inspection Ears, Nose, Throat Exam: normal ENT inspection, pharynx normal, moist mucous membranes Neck Exam: normal inspection, non-tender, supple, full range of motion Respiratory Exam: normal breath sounds, lungs clear, No respiratory distress Cardiovascular Exam: regular rate/rhythm, normal heart sounds Gastrointestinal/Abdomen Exam: normal bowel sounds, tenderness, guarding, No mass Back Exam: normal inspection, normal range of motion, No CVA tenderness, No vertebral tenderness Extremity Exam: normal inspection, normal range of motion, pelvis stable Neurologic Exam: alert, oriented x 3, cooperative, normal mood/affect, nml cerebellar function, sensation nml, No motor deficits Skin Exam: normal color, warm, dry SpO2: 99 - Course Nursing assessment & vital signs reviewed: Yes EKG Interpreted by Me: RATE ([id number]), Sinus Rhythm, NORMAL AXIS, NORMAL INTERVALS, NORMAL QRS, NORMAL ST-T - CT Exams Abdomen/Pelvis CT Interpretation: Other (CT scan of the abdomen and pelvis shows continue negative CT with contrast exam again with incidental L4 S1 degenerative disc disease.. CT of the chest with contrast shows minimal left basilar atelectasis or scarring remaining CT with contrast is normal) Ordered Tests: Active Orders 24 hr Category Date Time Status EKG-ER Only STAT Care 06/16/21 13:07 Active IV Insertion STAT Care 06/16/21 13:07 Active ABDOMEN AND PELVIS W CONTRAST [CT] Stat Exams 06/16/21 13:06 Completed CHEST WITH CONTRAST [CT] Stat Exams 06/16/21 13:06 Completed AMYLASE Stat Lab 06/16/21 13:05 Completed CBC W DIFF Stat Lab 06/16/21 13:05 Completed CMP Stat Lab 06/16/21 13:05 Completed LIPASE Stat Lab 06/16/21 13:05 Completed Lactic Acid Stat Lab 06/16/21 13:07 Completed PROTIME WITH INR Stat Lab 06/16/21 13:05 Completed TROPONIN Q3H Lab 06/16/21 13:05 Completed TROPONIN Q3H Lab 06/16/21 16:15 Ordered TROPONIN Q3H Lab 06/16/21 19:15 Ordered TROPONIN Q3H Lab 06/16/21 22:15 Ordered TROPONIN Q3H Lab 06/17/21 01:15 Ordered UA W/RFX UR CULTURE Stat Lab 06/16/21 13:10 Completed Urine Triage Profile Stat Lab 06/16/21 13:10 Completed Medication Summary Discontinued Medications Generic Name Dose Route Start Last Admin Trade Name Freq PRN Reason Stop Dose Admin Fentanyl Citrate 50 mcg 06/16/21 13:07 06/16/21 13:14 Sublimaze 100 Mcg/2 Ml IV 06/16/21 13:08 50 mcg STAT ONE Administration Fentanyl Citrate Confirm 06/16/21 13:11 Sublimaze 100 Mcg/2 Ml Administered 06/16/21 13:12 Dose 100 mcg .ROUTE .STK-MED ONE Fentanyl Citrate 50 mcg 06/16/21 14:45 06/16/21 14:49 Sublimaze 100 Mcg/2 Ml IV 06/16/21 14:46 50 mcg STAT ONE Administration Fentanyl Citrate Confirm 06/16/21 14:48 Sublimaze 100 Mcg/2 Ml Administered 06/16/21 14:49 Dose 100 mcg .ROUTE .STK-MED ONE Sodium Chloride 1,000 mls @ 999 mls/hr 06/16/21 13:07 06/16/21 14:15 Sodium Chloride 0.9% 1000 Ml IV 06/16/21 14:07 Infused .Q1H1M STA Infusion Sodium Chloride Confirm 06/16/21 13:12 Sodium Chloride 0.9% 1000 Ml Administered 06/16/21 13:13 Dose 1,000 mls @ ud .ROUTE .STK-MED ONE Ondansetron HCl 4 mg 06/16/21 13:10 06/16/21 13:14 Zofran 4 Mg/2 Ml Vial IV 06/16/21 13:11 4 mg STAT ONE Administration Ondansetron HCl Confirm 06/16/21 13:11 Zofran 4 Mg/2 Ml Vial Administered 06/16/21 13:12 Dose 4 mg .ROUTE .STK-MED ONE Lab/Rad Data: Laboratory Result Diagrams 06/16/21 13:05 06/16/21 13:05 Laboratory Results 06/16/21 06/16/21 06/16/21 Range/Units 13:10 13:10 13:07 WBC (4.0-10.5) K/mm3 RBC (4.1-5.4) M/mm3 Hgb (12.0-16.0) gm/dl Hct (35-47) % MCV (78-100) fl MCH (26-32) pg MCHC (32-36) g/dl RDW (11.5-14.0) % Plt Count (150-450) K/mm3 MPV (7.5-11.0) fl Gran % (36.0-66.0) % Eos # (Auto) (0-0.5) Absolute Lymphs (auto) (1.0-4.6) Absolute Monos (auto) (0.0-1.3) Lymphocytes % (24.0-44.0) % Monocytes % (0.0-12.0) % Eosinophils % (0.00-5.0) % Basophils % (0.0-0.4) % Absolute Granulocytes (1.4-6.9) Basophils # (0-0.4) PT (9.4-12.5) SECONDS INR (0.8-3.0) Sodium (137-145) mmol/L Potassium (3.5-5.1) mmol/L Chloride (98-107) mmol/L Carbon Dioxide (22-30) mmol/L Anion Gap (5-15) MEQ/L BUN (7-17) mg/dL Creatinine (0.52-1.04) mg/dL Estimated GFR ML/MIN Glucose (74-106) mg/dL Lactic Acid 1.0 (0.4-2.0) Calcium (8.4-10.2) mg/dL Total Bilirubin (0.2-1.3) mg/dL AST (14-36) U/L ALT (0-35) U/L Alkaline Phosphatase (38-126) U/L Troponin I (0.000-0.034) ng/mL Serum Total Protein (6.3-8.2) g/dL Albumin (3.5-5.0) g/dL Amylase (30-110) U/L Lipase (23-300) U/L Urine Color YELLOW (YELLOW) Urine Appearance CLEAR (CLEAR) Urine pH 5.0 (5-6) Ur Specific Fraser 1.014 (1.005-1.025) Urine Protein NEGATIVE (Negative) Urine Ketones NEGATIVE (NEGATIVE) Urine Blood SMALL (0-5) Thiago/ul Urine Nitrite NEGATIVE (NEGATIVE) Urine Bilirubin NEGATIVE (NEGATIVE) Urine Urobilinogen NEGATIVE (0-1) mg/dL Ur Leukocyte Esterase NEGATIVE (NEGATIVE) Urine WBC (Auto) 3-5 (0-5) /HPF Urine RBC (Auto) NONE (0-2) /HPF U Epithel Cells (Auto) NONE (FEW) /HPF Urine Bacteria (Auto) NONE (NEGATIVE) /HPF Urine Mucus (Auto) SLIGHT (NEGATIVE) /HPF Urine Culture Reflexed NO (NO) Urine Glucose NEGATIVE (NEGATIVE) mg/dL Urine Opiates Level POSITIVE (NEGATIVE) Ur Methadone NEGATIVE (NEGATIVE) Urine Barbiturates NEGATIVE (NEGATIVE) Ur Phencyclidine (PCP) NEGATIVE (NEGATIVE) Urine Amphetamine NEGATIVE (NEGATIVE) U Benzodiazepine Level NEGATIVE (NEGATIVE) Urine Cocaine NEGATIVE (NEGATIVE) Urine Marijuana (THC) POSITIVE (NEGATIVE) 06/16/21 06/16/21 06/16/21 Range/Units 13:05 13:05 13:05 WBC (4.0-10.5) K/mm3 RBC (4.1-5.4) M/mm3 Hgb (12.0-16.0) gm/dl Hct (35-47) % MCV (78-100) fl MCH (26-32) pg MCHC (32-36) g/dl RDW (11.5-14.0) % Plt Count (150-450) K/mm3 MPV (7.5-11.0) fl Gran % (36.0-66.0) % Eos # (Auto) (0-0.5) Absolute Lymphs (auto) (1.0-4.6) Absolute Monos (auto) (0.0-1.3) Lymphocytes % (24.0-44.0) % Monocytes % (0.0-12.0) % Eosinophils % (0.00-5.0) % Basophils % (0.0-0.4) % Absolute Granulocytes (1.4-6.9) Basophils # (0-0.4) PT 51.0 H (9.4-12.5) SECONDS INR 4.32 H (0.8-3.0) Sodium 142 (137-145) mmol/L Potassium 3.6 (3.5-5.1) mmol/L Chloride 101 (98-107) mmol/L Carbon Dioxide 31 H (22-30) mmol/L Anion Gap 12.9 (5-15) MEQ/L BUN 12 (7-17) mg/dL Creatinine 0.82 (0.52-1.04) mg/dL Estimated GFR > 60.0 ML/MIN Glucose 81 (74-106) mg/dL Lactic Acid (0.4-2.0) Calcium 9.0 (8.4-10.2) mg/dL Total Bilirubin 0.30 (0.2-1.3) mg/dL AST 43 H (14-36) U/L ALT 23 (0-35) U/L Alkaline Phosphatase 90 (38-126) U/L Troponin I < 0.012 (0.000-0.034) ng/mL Serum Total Protein 7.2 (6.3-8.2) g/dL Albumin 4.3 (3.5-5.0) g/dL Amylase 44 (30-110) U/L Lipase 75 (23-300) U/L Urine Color (YELLOW) Urine Appearance (CLEAR) Urine pH (5-6) Ur Specific Fraser (1.005-1.025) Urine Protein (Negative) Urine Ketones (NEGATIVE) Urine Blood (0-5) Thiago/ul Urine Nitrite (NEGATIVE) Urine Bilirubin (NEGATIVE) Urine Urobilinogen (0-1) mg/dL Ur Leukocyte Esterase (NEGATIVE) Urine WBC (Auto) (0-5) /HPF Urine RBC (Auto) (0-2) /HPF U Epithel Cells (Auto) (FEW) /HPF Urine Bacteria (Auto) (NEGATIVE) /HPF Urine Mucus (Auto) (NEGATIVE) /HPF Urine Culture Reflexed (NO) Urine Glucose (NEGATIVE) mg/dL Urine Opiates Level (NEGATIVE) Ur Methadone (NEGATIVE) Urine Barbiturates (NEGATIVE) Ur Phencyclidine (PCP) (NEGATIVE) Urine Amphetamine (NEGATIVE) U Benzodiazepine Level (NEGATIVE) Urine Cocaine (NEGATIVE) Urine Marijuana (THC) (NEGATIVE) 06/16/21 Range/Units 13:05 WBC 10.5 (4.0-10.5) K/mm3 RBC 4.67 (4.1-5.4) M/mm3 Hgb 14.0 (12.0-16.0) gm/dl Hct 43.7 (35-47) % MCV 93.6 (78-100) fl MCH 30.0 (26-32) pg MCHC 32.0 (32-36) g/dl RDW 13.7 (11.5-14.0) % Plt Count 329 (150-450) K/mm3 MPV 9.9 (7.5-11.0) fl Gran % 49.9 (36.0-66.0) % Eos # (Auto) 0.65 H (0-0.5) Absolute Lymphs (auto) 3.83 (1.0-4.6) Absolute Monos (auto) 0.76 (0.0-1.3) Lymphocytes % 36.3 (24.0-44.0) % Monocytes % 7.2 (0.0-12.0) % Eosinophils % 6.2 H (0.00-5.0) % Basophils % 0.4 (0.0-0.4) % Absolute Granulocytes 5.26 (1.4-6.9) Basophils # 0.04 (0-0.4) PT (9.4-12.5) SECONDS INR (0.8-3.0) Sodium (137-145) mmol/L Potassium (3.5-5.1) mmol/L Chloride (98-107) mmol/L Carbon Dioxide (22-30) mmol/L Anion Gap (5-15) MEQ/L BUN (7-17) mg/dL Creatinine (0.52-1.04) mg/dL Estimated GFR ML/MIN Glucose (74-106) mg/dL Lactic Acid (0.4-2.0) Calcium (8.4-10.2) mg/dL Total Bilirubin (0.2-1.3) mg/dL AST (14-36) U/L ALT (0-35) U/L Alkaline Phosphatase (38-126) U/L Troponin I (0.000-0.034) ng/mL Serum Total Protein (6.3-8.2) g/dL Albumin (3.5-5.0) g/dL Amylase (30-110) U/L Lipase (23-300) U/L Urine Color (YELLOW) Urine Appearance (CLEAR) Urine pH (5-6) Ur Specific Fraser (1.005-1.025) Urine Protein (Negative) Urine Ketones (NEGATIVE) Urine Blood (0-5) Thiago/ul Urine Nitrite (NEGATIVE) Urine Bilirubin (NEGATIVE) Urine Urobilinogen (0-1) mg/dL Ur Leukocyte Esterase (NEGATIVE) Urine WBC (Auto) (0-5) /HPF Urine RBC (Auto) (0-2) /HPF U Epithel Cells (Auto) (FEW) /HPF Urine Bacteria (Auto) (NEGATIVE) /HPF Urine Mucus (Auto) (NEGATIVE) /HPF Urine Culture Reflexed (NO) Urine Glucose (NEGATIVE) mg/dL Urine Opiates Level (NEGATIVE) Ur Methadone (NEGATIVE) Urine Barbiturates (NEGATIVE) Ur Phencyclidine (PCP) (NEGATIVE) Urine Amphetamine (NEGATIVE) U Benzodiazepine Level (NEGATIVE) Urine Cocaine (NEGATIVE) Urine Marijuana (THC) (NEGATIVE) - Progress Progress: improved - Departure Departure Disposition: Home Clinical Impression: Abdominal pain Condition: Stable Critical Care Time: No Referrals: JAMMIE CHRISTIAN [Primary Care Provider] - Instructions: Acute Abdomen (Belly Pain), Adult (DC) Additional Instructions: Follow-up as soon as possible with pain management
== END 2021-06-16 15:25 | disposition home or self-care (01) ==
LOC: ED 12:45
DX: R10.9 Unspecified abdominal pain (principal); R11.0 Nausea; G62.9 Polyneuropathy, unspecified; E10.8 Type 1 diabetes mellitus with unspecified complications; E03.9 Hypothyroidism, unspecified; M79.7 Fibromyalgia; Z79.899 Other long term (current) drug therapy; Z79.01 Long term (current) use of anticoagulants
CPT/HCPCS: 36000; 36415; 71260; 74177; 80053; 80307; 81001; 82150; 83605; 83690; 84484; 85025; 85610; 93005; 96374; 96375; 96376; 99284; J2405; J3010

== ENCOUNTER 2025-06-02 08:49 | Emergency (ER) | payer MEDICARE ==
[2025-06-02] MEDS ORDERED: Zofran 4 MG/2 ML VIAL ONE (09:18)
--- NOTE | 2025-06-02 09:18 | ERPHSYRPT ---
- History of Present Illness Allergies/Adverse Reactions: fentanyl Adverse Reaction (Verified 06/02/25 09:16) Irregular Heart Beat morphine Adverse Reaction (Verified 06/02/25 09:16) Irregular Heart Beat Home Medications: lisinopriL [Zestril] 2.5 mg PO DAILY 04/28/21 [History] Albuterol Sulfate [Proair Digihaler] 2 puff PO Q4H PRN 06/02/25 [History] Amitriptyline HCl 50 mg PO HS 06/02/25 [History] Apixaban [Eliquis] 5 mg PO BID 06/02/25 [History] Aspirin 81 gm Chew [Baby Aspirin 81 mg Chew] 81 mg PO DAILY 06/02/25 [History] Atorvastatin Calcium [Lipitor] 40 mg PO HS 06/02/25 [History] Blood-Glucose Sensor [Dexcom G6 Sensor] See Rx Instructions .ROUTE .COMPLEX 06/02/25 [History] Brexpiprazole [Rexulti] 1 mg PO HS 06/02/25 [History] Famotidine 20 mg [Pepcid 20 MG] 20 mg PO BID 06/02/25 [History] Gabapentin [Neurontin] 600 mg PO TID 06/02/25 [History] Insulin Lispro See Rx Instructions .ROUTE .COMPLEX 06/02/25 [History] Insulin Pump Cart,Auto,Bt,G6/7 [Omnipod 5 [id number] Pods (Gen 5)] See Rx Instructions .ROUTE .COMPLEX 06/02/25 [History] Levothyroxine Sodium 25 Mcg [Synthroid 25 Mcg] 25 mcg PO DAILY 06/02/25 [History] Linaclotide [Linzess] 145 mcg PO DAILY 06/02/25 [History] Ondansetron [Ondansetron Odt ] 4 mg PO Q6H PRN 06/02/25 [History] Oxycodone HCl/Acetaminophen [Percocet 7.5-325 mg Tablet] 1 tab PO TID 06/02/25 [History] PANTOPRAZOLE 40 mg Tablet [Protonix 40MG Tablet] 40 mg PO BID 06/02/25 [History] Topiramate 25 mg [Topamax 25 MG] 25 mg PO BID 06/02/25 [History] Valacyclovir HCl [Valtrex] 500 mg PO DAILY 06/02/25 [History] Vortioxetine Hydrobromide [Trintellix] 20 mg PO EVENING MEAL 06/02/25 [History] lamoTRIgine [Lamotrigine] 100 mg PO EVENING MEAL 06/02/25 [History] Hx Tetanus, Diphtheria Vaccination/Date Given: Yes Hx Influenza Vaccination/Date Given: No Hx Pneumococcal Vaccination/Date Given: No - Past Medical History Psycho-Social History: Depression, Anxiety Female Reproductive Disorders: Menstrual Problems, Abnormal Uterine Bleeding, Other - Past Surgical History Female Surgical History: Hysterectomy, Tubal Ligation, Section Significant Family History: diabetes - Female History Hx Last Menstrual Period: HYST - Social History Smoking Status: Current every day smoker How long have you smoked: 20 Exposure to second hand smoke: Yes Alcohol Use: Socially Drug Use: none Patient Lives Alone: No - Nursing Vital Signs Nursing Vital Signs: Initial Vital Signs Pulse Rate 78 06/02/25 09:16 Respiratory Rate 17 06/02/25 09:16 Blood Pressure 161/108 06/02/25 09:16 O2 Sat by Pulse Oximetry 97 06/02/25 09:16 Pain Scale Pain Intensity 4 - Physical Exam SpO2: 100 - Course Nursing assessment & vital signs reviewed: Yes EKG Interpreted by Me: RATE (85), Sinus Rhythm, NORMAL AXIS, NORMAL INTERVALS, NORMAL QRS - Radiology Exams Chest X-ray Interpretation: Teleradiologist Report (Normal heart lungs and bony thorax. No acute findings) Ordered Tests: Active Orders 24 hr Category Date Time Status Social Security Specialist STAT Care 06/02/25 09:16 Active EKG-ER Only STAT Care 06/02/25 09:15 Active IV Insertion STAT Care 06/02/25 09:15 Active Pulse Oximetry (ED) STAT Care 06/02/25 09:15 Active CHEST 1 VIEW (PORTABLE) Stat Exams 06/02/25 09:52 Completed CBC W DIFF Stat Lab 06/02/25 09:28 Completed CMP Stat Lab 06/02/25 09:28 Completed CULTURE,URINE Stat Lab 06/02/25 09:18 Received D-DIMER QUANTITATIVE Stat Lab 06/02/25 09:10 Completed NT PRO BNPII Stat Lab 06/02/25 09:10 Completed PROTIME WITH INR Stat Lab 06/02/25 09:28 Completed PTT Stat Lab 06/02/25 09:28 Completed TROPONIN Q4H Lab 06/02/25 09:28 Completed TROPONIN Q4H Lab 06/02/25 13:15 Ordered TROPONIN Q4H Lab 06/02/25 17:15 Ordered UA W/RFX UR CULTURE Stat Lab 06/02/25 09:18 Completed Medication Summary Discontinued Medications Generic Name Dose Route Start Last Admin Trade Name Andie PRN Reason Stop Dose Admin Aspirin 324 mg 06/02/25 10:24 06/02/25 10:38 Aspirin 81 Mg Tab.Chew PO 06/02/25 10:25 324 mg STAT ONE Administration Aspirin Confirm 06/02/25 10:38 Aspirin 81 Mg Tab.Chew Administered 06/02/25 10:39 Dose 324 mg .ROUTE .STK-MED ONE Hydromorphone HCl 0.5 mg 06/02/25 09:16 06/02/25 09:22 Hydromorphone 1 Mg/1ml Inj IV 06/02/25 09:17 0.5 mg STAT ONE Administration Hydromorphone HCl Confirm 06/02/25 09:19 Hydromorphone 1 Mg/1ml Inj Administered 06/02/25 09:20 Dose 1 mg .ROUTE .STK-MED ONE Ondansetron HCl 4 mg 06/02/25 09:17 06/02/25 09:21 Ondansetron Hcl 4 Mg/2 Ml Vial IV 06/02/25 09:18 4 mg STAT ONE Administration Ondansetron HCl Confirm 06/02/25 09:18 Ondansetron Hcl 4 Mg/2 Ml Vial Administered 06/02/25 09:19 Dose 4 mg .ROUTE .STK-MED ONE Lab/Rad Data: Laboratory Result Diagrams 06/02/25 09:28 06/02/25 09:28 Laboratory Results 06/02/25 06/02/25 06/02/25 Range/Units 09:28 09:28 09:28 WBC 9.1 (3.98-10.04) x10^3/uL RBC 4.16 (3.93-5.22) x10^6/uL Hgb 13.3 (11.2-15.7) g/dL Hct 40.4 (34.1-44.9) % MCV 97.1 H (79.4-94.8) fL MCH 32.0 (25.6-32.2) pg MCHC 32.9 (32.2-35.5) g/dL RDW 13.2 (11.7-14.4) % Plt Count 305 (182-369) x10^3/uL MPV 9.2 L (9.4-12.3) fL Gran % 64.0 (34.0-71.1) % Immature Gran % (Auto) 0.2 (0.001-0.429) % Nucleat RBC Rel Count 0.0 (0.00-0.2) % Eos # (Auto) 0.29 (0.04-0.36) x10^3/uL Immature Gran # (Auto) 0.02 (0.001-0.031) x10^3u/L Absolute Lymphs (auto) 2.19 (1.18-3.74) x10^3/uL Absolute Monos (auto) 0.72 (0.24-0.86) x10^3/uL Absolute Nucleated RBC 0.00 (0.00-0.012) x10^3u/L Lymphocytes % 24.2 (19.3-51.7) % Monocytes % 8.0 (4.7-12.5) % Eosinophils % 3.2 (0.7-5.8) % Basophils % 0.4 (0.1-1.2) % Absolute Granulocytes 5.79 (1.56-6.13) x10^3/uL Basophils # 0.04 (0.01-0.08) x10^3/uL PT 10.3 (9.4-12.5) SECONDS INR 0.94 (0.8-3.0) APTT 27.1 (25.1-36.5) SECONDS D-Dimer (0.0-0.50) mg/L Sodium 141 (135-145) mmol/L Potassium 3.6 (3.5-5.1) mmol/L Chloride 106 (98-107) mmol/L Carbon Dioxide 27 (22-30) mmol/L Anion Gap 12.2 (5-15) MEQ/L BUN 8 (7-17) mg/dL Creatinine 0.83 (0.52-1.04) mg/dL Estimated GFR 88.0 ML/MIN Glucose 176 H (74-106) mg/dL Calcium 9.6 (8.4-10.2) mg/dL Total Bilirubin 0.40 (0.2-1.3) mg/dL AST 27 (14-36) U/L ALT 20 (0-35) U/L Alkaline Phosphatase 112 (38-126) U/L Troponin I 0.023 (0.000-0.033) ng/mL NT-Pro-B Natriuret Pep (<300) pg/mL Serum Total Protein 7.4 (6.3-8.2) g/dL Albumin 4.5 (3.5-5.0) g/dL Urine Color (Yellow) Urine Appearance (Clear) Urine pH (4.6-8.0) Ur Specific [place] (1.005-1.030) Urine Protein (Negative) Urine Glucose (UA) (Negative) mg/dL Urine Ketones (Negative) Urine Blood (Negative) Urine Nitrite (Negative) Urine Bilirubin (Negative) Urine Urobilinogen (0.2) mg/dL Ur Leukocyte Esterase (Negative) U Hyaline Cast (Auto) (0-2) /LPF Urine Microscopic RBC (0-5) /HPF Urine Microscopic WBC (0-5) /HPF Ur Epithelial Cells (None Seen) /HPF Urine Bacteria (None Seen) /HPF Urine Culture Reflexed (NO) 06/02/25 06/02/25 06/02/25 Range/Units 09:18 09:10 09:10 WBC (3.98-10.04) x10^3/uL RBC (3.93-5.22) x10^6/uL Hgb (11.2-15.7) g/dL Hct (34.1-44.9) % MCV (79.4-94.8) fL MCH (25.6-32.2) pg MCHC (32.2-35.5) g/dL RDW (11.7-14.4) % Plt Count (182-369) x10^3/uL MPV (9.4-12.3) fL Gran % (34.0-71.1) % Immature Gran % (Auto) (0.001-0.429) % Nucleat RBC Rel Count (0.00-0.2) % Eos # (Auto) (0.04-0.36) x10^3/uL Immature Gran # (Auto) (0.001-0.031) x10^3u/L Absolute Lymphs (auto) (1.18-3.74) x10^3/uL Absolute Monos (auto) (0.24-0.86) x10^3/uL Absolute Nucleated RBC (0.00-0.012) x10^3u/L Lymphocytes % (19.3-51.7) % Monocytes % (4.7-12.5) % Eosinophils % (0.7-5.8) % Basophils % (0.1-1.2) % Absolute Granulocytes (1.56-6.13) x10^3/uL Basophils # (0.01-0.08) x10^3/uL PT (9.4-12.5) SECONDS INR (0.8-3.0) APTT (25.1-36.5) SECONDS D-Dimer 0.21 (0.0-0.50) mg/L Sodium (135-145) mmol/L Potassium (3.5-5.1) mmol/L Chloride (98-107) mmol/L Carbon Dioxide (22-30) mmol/L Anion Gap (5-15) MEQ/L BUN (7-17) mg/dL Creatinine (0.52-1.04) mg/dL Estimated GFR ML/MIN Glucose (74-106) mg/dL Calcium (8.4-10.2) mg/dL Total Bilirubin (0.2-1.3) mg/dL AST (14-36) U/L ALT (0-35) U/L Alkaline Phosphatase (38-126) U/L Troponin I (0.000-0.033) ng/mL NT-Pro-B Natriuret Pep 639 (<300) pg/mL Serum Total Protein (6.3-8.2) g/dL Albumin (3.5-5.0) g/dL Urine Color Yellow (Yellow) Urine Appearance Clear (Clear) Urine pH 5.0 (4.6-8.0) Ur Specific [place] 1.020 (1.005-1.030) Urine Protein Negative (Negative) Urine Glucose (UA) Negative (Negative) mg/dL Urine Ketones Trace A (Negative) Urine Blood Negative (Negative) Urine Nitrite Negative (Negative) Urine Bilirubin Negative (Negative) Urine Urobilinogen 1.0 A (0.2) mg/dL Ur Leukocyte Esterase Small A (Negative) U Hyaline Cast (Auto) NONE SEEN (0-2) /LPF Urine Microscopic RBC 0-2 (0-5) /HPF Urine Microscopic WBC 11-20 A (0-5) /HPF Ur Epithelial Cells Rare (None Seen) /HPF Urine Bacteria None Seen (None Seen) /HPF Urine Culture Reflexed YES (NO) - Departure Clinical Impression: Chest pain, ACS (acute coronary syndrome), UTI (urinary tract infection) Condition: Stable Critical Care Time: No Referrals: JAMMIE CHRISTIAN NP [Primary Care Provider, [facility]] - Follow up/PCP as directed
[2025-06-02] MEDS ORDERED: Hydromorphone 1 mg/ml Injection ONE ×3 (09:19→15:25)
[2025-06-02] MEDS: Zofran 4 MG/2 ML VIAL IV ONE (09:21)
[2025-06-02] MEDS: Hydromorphone 1 mg/ml Injection IV ONE ×3 (09:22→15:26)
[2025-06-02 09:27] VITALS: TEMP 97.6
[2025-06-02 09:53] LABS: INR 0.94 (0.8-3.0); PROTIME 10.3 SECONDS (9.4-12.5); PTT 27.1 SECONDS (25.1-36.5)
[2025-06-02 09:59] LABS: BASOPHIL % 0.4 % (0.1-1.2); Basophil (Absolute #) 0.04 x10^3/uL (0.01-0.08); Calcium 9.6 mg/dL (8.4-10.2); Carbon Dioxide 27.0 mmol/L (22-30); Creatinine 1 0.83 mg/dL (0.52-1.04); EST GLOMERULAR FILTRATION RATE 88.0 ML/MIN; Eosinophil (Absolute #) 0.29 x10^3/uL (0.04-0.36); Glucose 176.0 mg/dL (74-106); Hematocrit 40.4 % (34.1-44.9); Hemoglobin 13.3 g/dL (11.2-15.7); IMMATURE GRAN # 0.02 x10^3u/L (0.001-0.031); IMMATURE GRAN % 0.2 % (0.001-0.429); Lymphocyte (Absolute #) 2.19 x10^3/uL (1.18-3.74); Mean Corpuscular Hemoglobin 32.0 pg (25.6-32.2); Mean Corpuscular Hgb Concent. 32.9 g/dL (32.2-35.5); Monocyte (Absolute #) 0.72 x10^3/uL (0.24-0.86); NUCLEATED RBC # 0.00 x10^3u/L (0.00-0.012); NUCLEATED RBC % 0.0 % (0.00-0.2); Platelet Count 305 x10^3/uL (182-369); Potassium 3.6 mmol/L (3.5-5.1); Red Blood Count 4.16 x10^6/uL (3.93-5.22); SGOT/AST 27.0 U/L (14-36); SGPT/ALT 20.0 U/L (0-35); TROPONIN 0.023 ng/mL (0.000-0.033); Total Protein 7.4 g/dL (6.3-8.2); White Blood Count 9.1 x10^3/uL (3.98-10.04)
--- NOTE | 2025-06-02 10:09 | XRAY ---
Indication: Pain. Comparison: July 09, 2016 Portable chest again demonstrates normal heart and lungs. Bony thorax intact. No new/acute findings.
[2025-06-02 10:17] LABS: Glucose, Urine Negative (Negative); Protein,Urine Dip Negative (Negative); RBC 0-2 /HPF (0-5)
[2025-06-02] MEDS: BABY ASPIRIN 81 MG CHEW PO ONE (10:38)
[2025-06-02] MEDS ORDERED: BABY ASPIRIN 81 MG CHEW ONE (10:38)
[2025-06-02] MEDS ORDERED: ROCEPHIN 1 GM / 100 ML NaCl 1 GM/100 ML IVPB IV ONE (12:11)
[2025-06-02] MEDS: ROCEPHIN 1 GM / 100 ML NaCl 1 GM/100 ML IVPB IV ONE (12:12)
--- NOTE | 2025-06-02 12:36 | ERPHSYRPT ---
- History of Present Illness Time Seen by Provider: 06/02/25 09:30 Historian: patient Exam Limitations: no limitations Patient Subjective Stated Complaint: pt states that she has chest pain that radiates to her neck and ears Triage Nursing Assessment: pt ambulated into the er; pt is axo x4; pt is tearful; c/o chest pain; pt states 8/10 pain to chest; clear apical heart tone; strong ed radial pulses and pedal pulse; no edema present; clear lung sounds in all lobes; no respiratory distress present; skin PDW; hypertensive Physician History: Patient is a 44-year-old female type I diabetic presents to our emergency department for evaluation of chest pain. Patient states the pain radiates from her chest to her neck and her ears. Symptoms started this morning. Patient rates her pain 8 out of 10. No trauma no fever no nausea vomiting or diaphoresis. Symptoms are mild to moderate in intensity. No specific worsening or improving factors. Patient voices no other complaints or concerns at this time. Portions of this note were created with voice recognition technology. There may be grammatical, spelling, punctuation or sound alike errors Timing/Duration: today Activities at Onset: none Quality: aching Location: substernal Chest Pain Radiation: neck Modifying Factors: Improves With: nothing Associated Symptoms: denies symptoms Prior Chest Pain/Cardiac Workup: no prior chest pain Nitro Today/Relief: no nitro taken today Aspirin Treatment Today: no aspirin today Allergies/Adverse Reactions: fentanyl Adverse Reaction (Verified 06/02/25 09:16) Irregular Heart Beat morphine Adverse Reaction (Verified 06/02/25 09:16) Irregular Heart Beat Home Medications: lisinopriL [Zestril] 2.5 mg PO DAILY 04/28/21 [History] Albuterol Sulfate [Proair Digihaler] 2 puff PO Q4H PRN 06/02/25 [History] Amitriptyline HCl 50 mg PO HS 06/02/25 [History] Apixaban [Eliquis] 5 mg PO BID 06/02/25 [History] Aspirin 81 gm Chew [Baby Aspirin 81 mg Chew] 81 mg PO DAILY 06/02/25 [History] Atorvastatin Calcium [Lipitor] 40 mg PO HS 06/02/25 [History] Blood-Glucose Sensor [Dexcom G6 Sensor] See Rx Instructions .ROUTE .COMPLEX 06/02/25 [History] Brexpiprazole [Rexulti] 1 mg PO HS 06/02/25 [History] Famotidine 20 mg [Pepcid 20 MG] 20 mg PO BID 06/02/25 [History] Gabapentin [Neurontin] 600 mg PO TID 06/02/25 [History] Insulin Lispro See Rx Instructions .ROUTE .COMPLEX 06/02/25 [History] Insulin Pump Cart,Auto,Bt,G6/7 [Omnipod 5 [id number] Pods (Gen 5)] See Rx Instructions .ROUTE .COMPLEX 06/02/25 [History] Levothyroxine Sodium 25 Mcg [Synthroid 25 Mcg] 25 mcg PO DAILY 06/02/25 [History] Linaclotide [Linzess] 145 mcg PO DAILY 06/02/25 [History] Ondansetron [Ondansetron Odt ] 4 mg PO Q6H PRN 06/02/25 [History] Oxycodone HCl/Acetaminophen [Percocet 7.5-325 mg Tablet] 1 tab PO TID 06/02/25 [History] PANTOPRAZOLE 40 mg Tablet [Protonix 40MG Tablet] 40 mg PO BID 06/02/25 [History] Topiramate 25 mg [Topamax 25 MG] 25 mg PO BID 06/02/25 [History] Valacyclovir HCl [Valtrex] 500 mg PO DAILY 06/02/25 [History] Vortioxetine Hydrobromide [Trintellix] 20 mg PO EVENING MEAL 06/02/25 [History] lamoTRIgine [Lamotrigine] 100 mg PO EVENING MEAL 06/02/25 [History] Hx Tetanus, Diphtheria Vaccination/Date Given: Yes Hx Influenza Vaccination/Date Given: No Hx Pneumococcal Vaccination/Date Given: No Travel Risk - International Travel Have you traveled outside of the country in past 3 weeks: No - Emerging Infectious Disease Are you exhibiting symptoms associated with any current EIDs: No - Review of Systems Constitutional: No Symptoms, No Fever, No Chills Eyes: No Symptoms Ears, Nose, & Throat: No Symptoms Respiratory: No Symptoms, No Cough, No Dyspnea Cardiac: No Symptoms, No Chest Pain, No Edema, No Syncope Abdominal/Gastrointestinal: No Symptoms, No Abdominal Pain, No Nausea, No Vomiting, No Diarrhea Genitourinary Symptoms: No Symptoms, No Dysuria Musculoskeletal: No Symptoms, No Back Pain, No Neck Pain Skin: No Symptoms, No Rash Neurological: No Symptoms, No Dizziness, No Focal Weakness, No Sensory Changes Psychological: No Symptoms Endocrine: No Symptoms Hematologic/Lymphatic: No Symptoms Immunological/Allergic: No Symptoms All Other Systems: Reviewed and Negative - Past Medical History Pertinent Past Medical History: Yes Neurological History: Peripheral Neuropathy ENT History: No Pertinent History Cardiac History: No Pertinent History Respiratory History: Bronchitis Endocrine Medical History: Diabetes Type I, Hypothyroidism Musculoskeletal History: Degenerative Disk Disease, Fibromyalgia GI Medical History: GERD History: No Pertinent History Psycho-Social History: Depression, Anxiety Female Reproductive Disorders: Menstrual Problems, Abnormal Uterine Bleeding, Other Other Medical History: Protein C-difficiency. Irritable Bowel Syndrome, ADD - Past Surgical History Past Surgical History: Yes Neuro Surgical History: No Pertinent History Cardiac: Cardiac Catheterization Respiratory: No Pertinent History Gastrointestinal: Cholecystectomy Genitourinary: No Pertinent History Musculoskeletal: Orthopedic Surgery Female Surgical History: Hysterectomy, Tubal Ligation, Section Other Surgical History: TONSILLECTOMY - LUMBAR BACK SURGERY Significant Family History: diabetes - Female History Hx Last Menstrual Period: HYST Hx Now: No - Social History Smoking Status: Light tobacco smoker How long have you smoked: 20 Exposure to second hand smoke: Yes Drug Use: marijuana - Social Determinants of Health Will the patient participate in the screening: Yes Do you worry about a steady place to live?: No Do you have any problems with any of the following?: No known problems In the past 12 months,have you had to go without utilities?: No Transportation Issues: No Has anyone in your support network made you feel unsafe?: No Have you or anyone in your house had to go w/o enough food: No - Nursing Vital Signs Nursing Vital Signs: Initial Vital Signs Pulse Rate 78 06/02/25 09:16 Respiratory Rate 17 06/02/25 09:16 Blood Pressure 161/108 06/02/25 09:16 O2 Sat by Pulse Oximetry 97 06/02/25 09:16 Pain Scale Pain Intensity 6 - Physical Exam General Appearance: no apparent distress, alert Eye Exam: PERRL/EOMI, eyes nml inspection Ears, Nose, Throat Exam: normal ENT inspection, moist mucous membranes Neck Exam: normal inspection, full range of motion Respiratory Exam: normal breath sounds, lungs clear, airway intact, No respiratory distress Cardiovascular Exam: regular rate/rhythm, normal heart sounds Gastrointestinal/Abdomen Exam: soft, No tenderness, No mass Back Exam: normal inspection, No CVA tenderness, No vertebral tenderness Extremity Exam: normal inspection, normal range of motion Neurologic Exam: alert, oriented x 3, cooperative, normal mood/affect, sensation nml, No motor deficits Skin Exam: normal color, warm, dry Lymphatic Exam: No adenopathy SpO2 Interpretation: normal SpO2: 100 O2 Delivery: Room Air - Course Nursing assessment & vital signs reviewed: Yes EKG Interpreted by Me: RATE (85), Sinus Rhythm, NORMAL AXIS, NORMAL INTERVALS, NORMAL QRS - Radiology Exams Chest X-ray Interpretation: Teleradiologist Report (Normal heart lungs and bony thorax) Ordered Tests: Active Orders 24 hr Category Date Time Status Sports Manager STAT Care 06/02/25 09:16 Active EKG-ER Only STAT Care 06/02/25 09:15 Active IV Insertion STAT Care 06/02/25 09:15 Active Pulse Oximetry (ED) STAT Care 06/02/25 09:15 Active CHEST 1 VIEW (PORTABLE) Stat Exams 06/02/25 09:52 Completed CBC W DIFF Stat Lab 06/02/25 09:28 Completed CMP Stat Lab 06/02/25 09:28 Completed CULTURE,URINE Stat Lab 06/02/25 09:18 Received D-DIMER QUANTITATIVE Stat Lab 06/02/25 09:10 Completed NT PRO BNPII Stat Lab 06/02/25 09:10 Completed PROTIME WITH INR Stat Lab 06/02/25 09:28 Completed PTT Stat Lab 06/02/25 09:28 Completed TROPONIN Q4H Lab 06/02/25 09:28 Completed TROPONIN Q4H Lab 06/02/25 12:20 Completed TROPONIN Q4H Lab 06/02/25 17:15 Ordered UA W/RFX UR CULTURE Stat Lab 06/02/25 09:18 Completed Medication Summary Generic Name Dose Route Start Last Admin Trade Name Freq PRN Reason Stop Dose Admin Nitroglycerin/Dextrose 250 mls @ 1.5 mls/hr 06/02/25 13:16 06/02/25 15:30 Ntg 0.2mg/Ml In D5w Glass IV 07/02/25 13:15 5 mcg/min .Q24H PRN 1.5 mls/hr CHEST PAIN Administration Protocol 5 MCG/MIN Discontinued Medications Generic Name Dose Route Start Last Admin Trade Name Mioq PRN Reason Stop Dose Admin Aspirin 324 mg 06/02/25 10:24 06/02/25 10:38 Aspirin 81 Mg Tab.Chew PO 06/02/25 10:25 324 mg STAT ONE Administration Aspirin Confirm 06/02/25 10:38 Aspirin 81 Mg Tab.Chew Administered 06/02/25 10:39 Dose 324 mg .ROUTE .STK-MED ONE Hydromorphone HCl 0.5 mg 06/02/25 09:16 06/02/25 09:22 Hydromorphone 1 Mg/1ml Inj IV 06/02/25 09:17 0.5 mg STAT ONE Administration Hydromorphone HCl Confirm 06/02/25 09:19 Hydromorphone 1 Mg/1ml Inj Administered 06/02/25 09:20 Dose 1 mg .ROUTE .STK-MED ONE Hydromorphone HCl 0.5 mg 06/02/25 12:29 06/02/25 12:33 Hydromorphone 1 Mg/1ml Inj IV 06/02/25 12:30 0.5 mg STAT ONE Administration Hydromorphone HCl Confirm 06/02/25 12:32 Hydromorphone 1 Mg/1ml Inj Administered 06/02/25 12:33 Dose 1 mg .ROUTE .STK-MED ONE Hydromorphone HCl 0.5 mg 06/02/25 15:22 06/02/25 15:26 Hydromorphone 1 Mg/1ml Inj IV 06/02/25 15:23 0.5 mg STAT ONE Administration Hydromorphone HCl Confirm 06/02/25 15:25 Hydromorphone 1 Mg/1ml Inj Administered 06/02/25 15:26 Dose 1 mg .ROUTE .STK-MED ONE Ceftriaxone Sodium 1 gm in 100 mls @ 200 mls/hr 06/02/25 12:07 06/02/25 12:43 Rocephin 1 Gm / 100 Ml Nacl IV 06/02/25 12:36 Infused STAT ONE Infusion Ceftriaxone Sodium Confirm 06/02/25 12:11 Rocephin 1 Gm / 100 Ml Nacl Administered 06/02/25 12:12 Dose 1 gm in 100 mls @ ud IV .STK-MED ONE Acetaminophen 1,000 mg in 100 mls @ 400 mls/hr 06/02/25 16:33 06/02/25 16:40 Ofirmev IV 06/02/25 16:47 400 mls/hr 1HRPRIOR ONE Administration Acetaminophen Confirm 06/02/25 16:39 Ofirmev Administered 06/02/25 16:40 Dose 100 mls @ ud IV .STK-MED ONE Ondansetron HCl 4 mg 06/02/25 09:17 06/02/25 09:21 Ondansetron Hcl 4 Mg/2 Ml Vial IV 06/02/25 09:18 4 mg STAT ONE Administration Ondansetron HCl Confirm 06/02/25 09:18 Ondansetron Hcl 4 Mg/2 Ml Vial Administered 06/02/25 09:19 Dose 4 mg .ROUTE .STK-MED ONE Lab/Rad Data: Laboratory Result Diagrams 06/02/25 09:28 06/02/25 09:28 Laboratory Results 06/02/25 06/02/25 06/02/25 Range/Units 12:20 09:28 09:28 WBC (3.98-10.04) x10^3/uL RBC (3.93-5.22) x10^6/uL Hgb (11.2-15.7) g/dL Hct (34.1-44.9) % MCV (79.4-94.8) fL MCH (25.6-32.2) pg MCHC (32.2-35.5) g/dL RDW (11.7-14.4) % Plt Count (182-369) x10^3/uL MPV (9.4-12.3) fL Gran % (34.0-71.1) % Immature Gran % (Auto) (0.001-0.429) % Nucleat RBC Rel Count (0.00-0.2) % Eos # (Auto) (0.04-0.36) x10^3/uL Immature Gran # (Auto) (0.001-0.031) x10^3u/L Absolute Lymphs (auto) (1.18-3.74) x10^3/uL Absolute Monos (auto) (0.24-0.86) x10^3/uL Absolute Nucleated RBC (0.00-0.012) x10^3u/L Lymphocytes % (19.3-51.7) % Monocytes % (4.7-12.5) % Eosinophils % (0.7-5.8) % Basophils % (0.1-1.2) % Absolute Granulocytes (1.56-6.13) x10^3/uL Basophils # (0.01-0.08) x10^3/uL PT 10.3 (9.4-12.5) SECONDS INR 0.94 (0.8-3.0) APTT 27.1 (25.1-36.5) SECONDS D-Dimer (0.0-0.50) mg/L Sodium 141 (135-145) mmol/L Potassium 3.6 (3.5-5.1) mmol/L Chloride 106 (98-107) mmol/L Carbon Dioxide 27 (22-30) mmol/L Anion Gap 12.2 (5-15) MEQ/L BUN 8 (7-17) mg/dL Creatinine 0.83 (0.52-1.04) mg/dL Estimated GFR 88.0 ML/MIN Glucose 176 H (74-106) mg/dL Calcium 9.6 (8.4-10.2) mg/dL Total Bilirubin 0.40 (0.2-1.3) mg/dL AST 27 (14-36) U/L ALT 20 (0-35) U/L Alkaline Phosphatase 112 (38-126) U/L Troponin I 0.021 0.023 (0.000-0.033) ng/mL NT-Pro-B Natriuret Pep (<300) pg/mL Serum Total Protein 7.4 (6.3-8.2) g/dL Albumin 4.5 (3.5-5.0) g/dL Urine Color (Yellow) Urine Appearance (Clear) Urine pH (4.6-8.0) Ur Specific [place] (1.005-1.030) Urine Protein (Negative) Urine Glucose (UA) (Negative) mg/dL Urine Ketones (Negative) Urine Blood (Negative) Urine Nitrite (Negative) Urine Bilirubin (Negative) Urine Urobilinogen (0.2) mg/dL Ur Leukocyte Esterase (Negative) U Hyaline Cast (Auto) (0-2) /LPF Urine Microscopic RBC (0-5) /HPF Urine Microscopic WBC (0-5) /HPF Ur Epithelial Cells (None Seen) /HPF Urine Bacteria (None Seen) /HPF Urine Culture Reflexed (NO) 06/02/25 06/02/25 06/02/25 Range/Units 09:28 09:18 09:10 WBC 9.1 (3.98-10.04) x10^3/uL RBC 4.16 (3.93-5.22) x10^6/uL Hgb 13.3 (11.2-15.7) g/dL Hct 40.4 (34.1-44.9) % MCV 97.1 H (79.4-94.8) fL MCH 32.0 (25.6-32.2) pg MCHC 32.9 (32.2-35.5) g/dL RDW 13.2 (11.7-14.4) % Plt Count 305 (182-369) x10^3/uL MPV 9.2 L (9.4-12.3) fL Gran % 64.0 (34.0-71.1) % Immature Gran % (Auto) 0.2 (0.001-0.429) % Nucleat RBC Rel Count 0.0 (0.00-0.2) % Eos # (Auto) 0.29 (0.04-0.36) x10^3/uL Immature Gran # (Auto) 0.02 (0.001-0.031) x10^3u/L Absolute Lymphs (auto) 2.19 (1.18-3.74) x10^3/uL Absolute Monos (auto) 0.72 (0.24-0.86) x10^3/uL Absolute Nucleated RBC 0.00 (0.00-0.012) x10^3u/L Lymphocytes % 24.2 (19.3-51.7) % Monocytes % 8.0 (4.7-12.5) % Eosinophils % 3.2 (0.7-5.8) % Basophils % 0.4 (0.1-1.2) % Absolute Granulocytes 5.79 (1.56-6.13) x10^3/uL Basophils # 0.04 (0.01-0.08) x10^3/uL PT (9.4-12.5) SECONDS INR (0.8-3.0) APTT (25.1-36.5) SECONDS D-Dimer (0.0-0.50) mg/L Sodium (135-145) mmol/L Potassium (3.5-5.1) mmol/L Chloride (98-107) mmol/L Carbon Dioxide (22-30) mmol/L Anion Gap (5-15) MEQ/L BUN (7-17) mg/dL Creatinine (0.52-1.04) mg/dL Estimated GFR ML/MIN Glucose (74-106) mg/dL Calcium (8.4-10.2) mg/dL Total Bilirubin (0.2-1.3) mg/dL AST (14-36) U/L ALT (0-35) U/L Alkaline Phosphatase (38-126) U/L Troponin I (0.000-0.033) ng/mL NT-Pro-B Natriuret Pep 639 (<300) pg/mL Serum Total Protein (6.3-8.2) g/dL Albumin (3.5-5.0) g/dL Urine Color Yellow (Yellow) Urine Appearance Clear (Clear) Urine pH 5.0 (4.6-8.0) Ur Specific [place] 1.020 (1.005-1.030) Urine Protein Negative (Negative) Urine Glucose (UA) Negative (Negative) mg/dL Urine Ketones Trace A (Negative) Urine Blood Negative (Negative) Urine Nitrite Negative (Negative) Urine Bilirubin Negative (Negative) Urine Urobilinogen 1.0 A (0.2) mg/dL Ur Leukocyte Esterase Small A (Negative) U Hyaline Cast (Auto) NONE SEEN (0-2) /LPF Urine Microscopic RBC 0-2 (0-5) /HPF Urine Microscopic WBC 11-20 A (0-5) /HPF Ur Epithelial Cells Rare (None Seen) /HPF Urine Bacteria None Seen (None Seen) /HPF Urine Culture Reflexed YES (NO) 06/02/25 Range/Units 09:10 WBC (3.98-10.04) x10^3/uL RBC (3.93-5.22) x10^6/uL Hgb (11.2-15.7) g/dL Hct (34.1-44.9) % MCV (79.4-94.8) fL MCH (25.6-32.2) pg MCHC (32.2-35.5) g/dL RDW (11.7-14.4) % Plt Count (182-369) x10^3/uL MPV (9.4-12.3) fL Gran % (34.0-71.1) % Immature Gran % (Auto) (0.001-0.429) % Nucleat RBC Rel Count (0.00-0.2) % Eos # (Auto) (0.04-0.36) x10^3/uL Immature Gran # (Auto) (0.001-0.031) x10^3u/L Absolute Lymphs (auto) (1.18-3.74) x10^3/uL Absolute Monos (auto) (0.24-0.86) x10^3/uL Absolute Nucleated RBC (0.00-0.012) x10^3u/L Lymphocytes % (19.3-51.7) % Monocytes % (4.7-12.5) % Eosinophils % (0.7-5.8) % Basophils % (0.1-1.2) % Absolute Granulocytes (1.56-6.13) x10^3/uL Basophils # (0.01-0.08) x10^3/uL PT (9.4-12.5) SECONDS INR (0.8-3.0) APTT (25.1-36.5) SECONDS D-Dimer 0.21 (0.0-0.50) mg/L Sodium (135-145) mmol/L Potassium (3.5-5.1) mmol/L Chloride (98-107) mmol/L Carbon Dioxide (22-30) mmol/L Anion Gap (5-15) MEQ/L BUN (7-17) mg/dL Creatinine (0.52-1.04) mg/dL Estimated GFR ML/MIN Glucose (74-106) mg/dL Calcium (8.4-10.2) mg/dL Total Bilirubin (0.2-1.3) mg/dL AST (14-36) U/L ALT (0-35) U/L Alkaline Phosphatase (38-126) U/L Troponin I (0.000-0.033) ng/mL NT-Pro-B Natriuret Pep (<300) pg/mL Serum Total Protein (6.3-8.2) g/dL Albumin (3.5-5.0) g/dL Urine Color (Yellow) Urine Appearance (Clear) Urine pH (4.6-8.0) Ur Specific [place] (1.005-1.030) Urine Protein (Negative) Urine Glucose (UA) (Negative) mg/dL Urine Ketones (Negative) Urine Blood (Negative) Urine Nitrite (Negative) Urine Bilirubin (Negative) Urine Urobilinogen (0.2) mg/dL Ur Leukocyte Esterase (Negative) U Hyaline Cast (Auto) (0-2) /LPF Urine Microscopic RBC (0-5) /HPF Urine Microscopic WBC (0-5) /HPF Ur Epithelial Cells (None Seen) /HPF Urine Bacteria (None Seen) /HPF Urine Culture Reflexed (NO) - Progress Progress: improved Air Movement: good Progress Note: I spoke to Dr. Samuels at approximately 1:21 PM. He advised that in light of patient's ongoing chest pain that we should transfer patient to higher level of care/cardiology evaluation. At 2:26 PM I spoke with Yelitza Wilcox NP with cardiology services at [facility][1]. She advised that the she/cardiology service would be willing to see the patient on consultation. However we would need to be accepted by the hospitalist at [place]. We are currently awaiting return call from [facility][1]. 06/02/25 14:27 Dr. Felipe King hospitalist at [facility][1] accepts transfer at 2:47 PM. They will call us back with a bed assignment 06/02/25 14:51 44-year-old female history of type 1 diabetes presents to our ED for evaluation of chest pain radiating to her neck. Initial laboratory workup essentially nonremarkable. D-dimer negative. Troponin within the normal range however not at baseline. EKG sinus rhythm. No ischemic changes. Due to patient's ongoing pain nitroglycerin initiated. Patient currently on Eliquis. No additional anticoagulation indicated at this time. Vitals are stable. BNP within normal limits. UA significant for UTI. Patient received a dose of Rocephin. Chest x- ray negative for acute pathology. Patient received 324 mg chewable aspirin. Due to cardiac risk factors patient's ongoing pain after discussion with our hospitalist the decision was made to transfer to higher level of care. Plan of care discussed with patient. She agrees to transfer to [facility][1] for further evaluation and treatment. Portions of this note were created with voice recognition technology. There may be grammatical, spelling, punctuation or sound alike errors Complexity of problem addressed is moderate acute complicated. No critical care time. Complex of data reviewed and analyzed as extensive. Test ordered test reviewed results analyzed and correlated clinically with history and physical exam. I discussed the case with our hospitalist, nurse practitioner of cardiology services at [facility][1] as well as hospitalist at [facility][1]. Risk of complication and or risk of morbidity/mortality of patient management is high. Patient requires transfer to higher level of care. Vital stable. Time spent to transfer patient approximately 15 minutes. Plan of care established for shared decision making. No social determinants of health present to impede follow-up. Portions of this note were created with voice recognition technology. There may be grammatical, spelling, punctuation or sound alike errors 06/02/25 17:02 Blood Culture(s) Obtained: No Antibiotics given: No Counseled pt/family regarding: lab results, diagnosis, rad results - Departure Departure Disposition: Transfer Clinical Impression: Chest pain, ACS (acute coronary syndrome), UTI (urinary tract infection) Condition: Stable Critical Care Time: No Referrals: JAMMIE CHRISTIAN NP [Primary Care Provider, [facility]] - Follow up/PCP as directed
[2025-06-02] MEDS: Ntg 0.2MG/Ml in D5W GLASS*** 250 ML IV PRN (15:30)
[2025-06-02] MEDS ORDERED: Ntg 0.2MG/Ml in D5W GLASS*** 250 ML IV ONE (15:30)
[2025-06-02] MEDS ORDERED: OFIRMEV 100 ML IV ONE (16:39)
[2025-06-02] MEDS: OFIRMEV 1,000 MG/100 ML ML IV ONE (16:40)
[2025-06-02 16:45] VITALS: RESP 16
[2025-06-02 17:02] VITALS: BP 118/62; PULSE 78
[2025-06-02 17:08] VITALS: O2SAT 100
== END 2025-06-02 16:55 | disposition short-term general hospital (02) ==
LOC: ED 08:49
DX: I24.9 Acute ischemic heart disease, unspecified (principal); R07.9 Chest pain, unspecified; N39.0 Urinary tract infection, site not specified; E10.42 Type 1 diabetes mellitus with diabetic polyneuropathy; Z79.01 Long term (current) use of anticoagulants; Z79.891 Long term (current) use of opiate analgesic; Z79.899 Other long term (current) drug therapy; Z72.0 Tobacco use